=== PATIENT | female | born 1985 | race Caucasian/White ===

== ENCOUNTER 2017-04-12 10:14 | Emergency (ER) | payer OTHER ==
[2017-04-12] MEDS ORDERED: HYDROmorphone 2 MG/ML 1 ML SYRINGE IM STA (10:49)
--- NOTE | 2017-04-12 11:30 | ED ---
General Adult HPI - General Chief complaint: Back Pain/Injury Stated complaint: Back Pain Time Seen by Provider: 04/12/17 10:33 Source: patient, EMS, RN notes reviewed, old records reviewed Mode of arrival: EMS - History of Present Illness Initial comments: This is a 32-year-old female the ER for evaluation of back pain. Patient has history of chronic back pain with no formal imaging. Patient is currently about 14 weeks . The pain has been increasing throughout her . Patient takes no medication at home for pain. The pain is becoming the point where it is debilitating. Patient is scheduled to see orthopedics as an outpatient basis. Patient's pain is shooting down her right leg to the point where situated in the morning she has difficulty with ambulation secondary to pain shooting down her leg. No trauma. No loss of bowel or bladder - Related Data Home Medications Medication Instructions Recorded Confirmed Acetaminophen Tab [Tylenol Tab] 1,000 mg PO Q6HR PRN 04/12/17 04/12/17 Calcium Carbonate [Tums] 500 mg PO Q4H PRN 04/12/17 04/12/17 Ibuprofen [Motrin] 200 - 400 mg PO Q6HR PRN 04/12/17 04/12/17 Zmi-Vfvq-Ssyln Acid 1 cap PO HS 04/12/17 04/12/17 [-U Capsule (formulary)] Rivaroxaban [Xarelto] 20 mg PO HS 04/12/17 04/12/17 Allergies Allergy/AdvReac Type Severity Reaction Status Date / Time amoxicillin trihydrate Allergy Nausea & Verified 04/12/17 10:34 [From Augmentin] Vomiting cephalexin monohydrate Allergy Nausea & Verified 04/12/17 10:34 [From Keflex] Vomiting codeine Allergy Rash/Hives Verified 04/12/17 10:34 morphine Allergy Rash/Hives Verified 04/12/17 10:34 potassium clavulanate Allergy Nausea & Verified 04/12/17 10:34 [From Augmentin] Vomiting tramadol HCl [From Ultram] AdvReac Vomiting Verified 04/12/17 10:34 occuflux Allergy Swelling Uncoded 12/13/15 14:16 Review of Systems ROS Statement: Those systems with pertinent positive or pertinent negative responses have been documented in the HPI. ROS Other: All systems not noted in ROS Statement are negative. 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 ; DVT in right thigh 09/2014: MTHFR clotting disorder 10/2014; Antiphospholipid clotting disorder 10/2014 History of Any Multi-Drug Resistant Organisms: MRSA Date of last positivie culture/infection: 2009 MDRO Source:: Polynoidal cyst Past Surgical History: Adenoidectomy, Back Surgery, Cholecystectomy, Tonsillectomy Additional Past Surgical History / Comment(s): pylonidial cyst 2002, 2 d&c related to miscarriges Past Anesthesia/Blood Transfusion Reactions: No Reported Reaction Past Psychological History: Anxiety, Depression Smoking Status: Former smoker Past Alcohol Use History: None Reported Past Drug Use History: None Reported - Past Family History Mother Family Medical History: AFIB, Musculoskeletal Disorder Additional Family Medical History / Comment(s): cardiomyopathy, muscular dystrophy Father Family Medical History: Hyperlipidemia, Hypertension, Myocardial Infarction ([place]) Brother(s) Family Medical History: Musculoskeletal Disorder Additional Family Medical History / Comment(s): at 17 from muscular dystrophy General Exam General appearance: alert, in no apparent distress Head exam: Present: atraumatic, normocephalic, normal inspection Eye exam: Present: normal appearance, PERRL, EOMI. Absent: scleral icterus, conjunctival injection, periorbital swelling ENT exam: Present: normal exam, mucous membranes moist Neck exam: Present: normal inspection. Absent: tenderness, meningismus, lymphadenopathy Respiratory exam: Present: normal lung sounds bilaterally. Absent: respiratory distress, wheezes, rales, rhonchi, stridor Cardiovascular Exam: Present: regular rate, normal rhythm, normal heart sounds. Absent: systolic murmur, diastolic murmur, rubs, gallop, clicks GI/Abdominal exam: Present: soft, normal bowel sounds. Absent: distended, tenderness, guarding, rebound, rigid Extremities exam: Present: normal inspection, full ROM, normal capillary refill. Absent: tenderness, pedal edema, joint swelling, calf tenderness Back exam: Present: normal inspection Neurological exam: Present: alert, oriented X3, CN II-XII intact Psychiatric exam: Present: normal affect, normal mood Skin exam: Present: warm, dry, intact, normal color. Absent: rash Course Vital Signs 04/12/17 04/12/17 10:16 12:42 Temperature 98.2 F 97.0 F L Pulse Rate 83 78 Respiratory 20 18 Rate Blood Pressure 134/80 124/87 O2 Sat by Pulse 95 99 Oximetry - Reevaluation(s) Reevaluation #1: An attempt to get MRI back, there is contraindication here for , patient will need to see both neurology, orthopedics spinal Reevaluation #2: Discussed patient with patient risks and benefits of pain modification at this time. Told her that we have acute strictly against skilled nursing medication but to encourage Tylenol, will treat with some pain control Troost for ambulation Patient has adequate pain control Medical Decision Making - Medical Decision Making 32 [id number] acute on chronic back pain, sciatic pain. Positive . Patient will continue to follow up in conjunction with OB in orthopedics for evaluation and treatment of her issues Disposition Clinical Impression: Sciatica, Mechanical back pain Disposition: HOME SELF-CARE Condition: Good Instructions: Acute Low Back Pain (ED), Chronic Back Pain (ED) Referrals: Jennifer Gonzáles DO [Doctor of Osteopathic Medicine] - 1-2 days
[2017-04-12 12:45] VITALS: BP 124/87; PULSE 78; RESP 18; TEMP 97
== END 2017-04-12 12:44 | disposition home or self-care (01) ==
LOC: EC 10:14
DX: O99.89 Other specified diseases and conditions complicating pregnancy, childbirth and the puerperium (principal); M54.31 Sciatica, right side; Z3A.14 14 weeks gestation of pregnancy; Z86.718 Personal history of other venous thrombosis and embolism; Z86.14 Personal history of Methicillin resistant Staphylococcus aureus infection; Z79.01 Long term (current) use of anticoagulants; Z88.0 Allergy status to penicillin; Z88.1 Allergy status to other antibiotic agents; Z88.5 Allergy status to narcotic agent; Z88.6 Allergy status to analgesic agent
CPT/HCPCS: 99284; 96372; J1170

== ENCOUNTER → 2017-05-06 | Outpatient (CLI) | payer OTHER ==
--- NOTE | 2017-05-06 18:36 | US ---
EXAMINATION TYPE: US venous doppler duplex LE DATE OF EXAM: 05/06/2017 6:24 PM COMPARISON: NONE CLINICAL HISTORY: Z86.718Hx DVT, D68.51, D68.312. History of DVT right leg, patient currently on bloo d thinner, patient is 5 months SIDE PERFORMED: bilateral TECHNIQUE: The lower extremity deep venous system is examined utilizing real time linear array sonog mary with graded compression, doppler sonography and color-flow sonography. VESSELS IMAGED: External Iliac Vein (EIV) Common Femoral Vein Deep Femoral Vein Greater Saphenous Vein * Femoral Vein Popliteal Vein Small Saphenous Vein * Proximal Calf Veins (* superficial vessels) Right Leg: +Positive for DVT right EIV extending into popliteal vein, thready flow with incomplete c ompression Left Leg: No evidence for DVT IMPRESSION: No evidence of deep venous thrombosis in the left leg. There is evidence of acute deep venous thrombosis in the right leg involving the external iliac femor al and popliteal vein.
== END | disposition home or self-care (01) ==
LOC: RADUSWWP 17:49
PROVIDERS: ATTEND Obstetrics & Gynecology
DX: I82.421 Acute embolism and thrombosis of right iliac vein (principal); I82.431 Acute embolism and thrombosis of right popliteal vein; D68.51 Activated protein C resistance
CPT/HCPCS: 93970

== ENCOUNTER 2017-05-10 10:49 | Inpatient (IN) | payer OTHER ==
--- NOTE | 2017-05-10 11:20 | ED ---
General Adult HPI - General Chief complaint: Extremity Problem,Nontraumatic Stated complaint: right leg DVT-sent by DR Braahona Seen by Provider: 05/10/17 10:55 Source: patient, RN notes reviewed, old records reviewed Mode of arrival: wheelchair Limitations: no limitations - History of Present Illness Initial comments: This is a 32-year-old female who presents emergency Department with a past medical history significant for DVTs. Patient is on Xarelto. Patient is also 19 weeks . Patient had a recent ultrasound just as a precaution and it showed that showed acute DVT in the right leg. Patient denies any new pain or swelling or redness in her leg though she does state that there is some tingling in her leg more recently over the last 2 weeks. Patient states when she is up and walking around she is a little bit short of breath but she believes that to be because of her . Patient states when she is resting she has not noticed any shortness of breath. Patient denies any recent fever chills or cough - Related Data Home Medications Medication Instructions Recorded Confirmed Acetaminophen Tab [Tylenol Tab] 500 mg PO Q6HR PRN 04/12/17 05/10/17 Voj-Stto-Tllmv Acid 1 cap PO DAILY@1700 04/12/17 05/10/17 [-U Capsule (formulary)] Rivaroxaban [Xarelto] 20 mg PO DAILY@1700 04/12/17 05/10/17 Aspirin EC [Ecotrin Low Dose] 81 mg PO DAILY@1700 05/10/17 05/10/17 diphenhydrAMINE [Benadryl] 25 mg PO HS PRN 05/10/17 05/10/17 Allergies Allergy/AdvReac Type Severity Reaction Status Date / Time amoxicillin trihydrate Allergy Nausea & Verified 05/10/17 11:18 [From Augmentin] Vomiting cephalexin monohydrate Allergy Nausea & Verified 05/10/17 11:18 [From Keflex] Vomiting codeine Allergy Rash/Hives Verified 05/10/17 11:18 morphine Allergy Rash/Hives Verified 05/10/17 11:18 potassium clavulanate Allergy Nausea & Verified 05/10/17 11:18 [From Augmentin] Vomiting tramadol HCl [From Ultram] AdvReac Vomiting Verified 05/10/17 11:18 occuflux Allergy Swelling Uncoded 05/10/17 10:57 Review of Systems ROS Statement: Those systems with pertinent positive or pertinent negative responses have been documented in the HPI. ROS Other: All systems not noted in ROS Statement are negative. 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 ; DVT in right thigh 09/2014: MTHFR clotting disorder 10/2014; Antiphospholipid clotting disorder 10/2014 History of Any Multi-Drug Resistant Organisms: MRSA Date of last positivie culture/infection: 2009 MDRO Source:: Polynoidal cyst Past Surgical History: Adenoidectomy, Back Surgery, Cholecystectomy, Tonsillectomy Additional Past Surgical History / Comment(s): pylonidial cyst 2002, 2 d&c related to miscarriges Past Anesthesia/Blood Transfusion Reactions: No Reported Reaction Past Psychological History: Anxiety, Depression Smoking Status: Former smoker Past Alcohol Use History: None Reported Past Drug Use History: None Reported - Past Family History Mother Family Medical History: AFIB, Musculoskeletal Disorder Additional Family Medical History / Comment(s): cardiomyopathy, muscular dystrophy Father Family Medical History: Hyperlipidemia, Hypertension, Myocardial Infarction ([place]) Brother(s) Family Medical History: Musculoskeletal Disorder Additional Family Medical History / Comment(s): at 17 from muscular dystrophy General Exam - General Exam Comments Initial Comments: GENERAL: Patient is well-developed and well-nourished. Patient is nontoxic and well- hydrated and is in no acute distress. ENT: Neck is soft and supple. No significant lymphadenopathy is noted. Oropharynx is clear. Moist mucous membranes. Neck has full range of motion without eliciting any pain. EYES: The sclera were anicteric and conjunctiva were pink and moist. Extraocular movements were intact and pupils were equal round and reactive to light. Eyelids were unremarkable. PULMONARY: Unlabored respirations. Good breath sounds bilaterally. No audible rales rhonchi or wheezing was noted. CARDIOVASCULAR: Patient is mildly tachycardic at 110 beats a minute ABDOMEN: Soft and nontender with normal bowel sounds. No palpable organomegaly was noted. There is no palpable pulsatile mass. SKIN: Skin is clear with no lesions or rashes and otherwise unremarkable. NEUROLOGIC: Patient is alert and oriented x3. Cranial nerves II through XII are grossly intact. Motor and sensory are also intact. Normal speech, volume and content. Symmetrical smile. MUSCULOSKELETAL: Normal extremities with adequate strength and full range of motion. No lower extremity swelling or edema. No calf tenderness. LYMPHATICS: No significant lymphadenopathy is noted PSYCHIATRIC: Normal psychiatric evaluation. Normal interpersonal interactions appears functionally intact in deals appropriately with others. No signs of depression. No signs of anxiety. Limitations: no limitations Course Vital Signs 05/10/17 10:54 Temperature 97.5 F L Pulse Rate 108 H Respiratory 20 Rate Blood Pressure 137/85 O2 Sat by Pulse 99 Oximetry Medical Decision Making - Medical Decision Making I spoke with Dr. sariah Bhat wants patient started on IV heparin. Dr. Bhat stated he had the patient on high-dose subcu heparin because the patient would not take Lovenox because she didn't want to pay the co-pay. She supposed to follow-up with Dr. Lehman for her PT and PTT but the patient has missed 2 or 3 appointments for that follow-up. Patient's EKG shows a sinus tachycardia at 105 bpm [place] interval 230 QRS is 86 QT interval 336 QTC is 444. I spoke with Dr. Namrata Ott he agreed to admit the patient. Disposition Clinical Impression: Acute DVT (deep venous thrombosis) Disposition: ADMITTED IP TO THIS HOSP Referrals: Artie Brooks MD [Primary Care Provider] - 1-2 days Time of Disposition: 12:20
[2017-05-10] MEDS ORDERED: HEPARIN SODIUM,PORCINE/D5W PMX 25,000 UNIT in DEXTROSE/WATER 1 500ML.BAG IV SCH (11:40)
[2017-05-10] MEDS ORDERED: HEPARIN SODIUM,PORCINE 10,000 UNIT/ML 1 ML VIAL IV ONE (11:40)
[2017-05-10] MEDS ORDERED: HEPARIN SODIUM,PORCINE 5,000 UNIT/ML 1 ML VIAL IV ONE (12:15)
[2017-05-10] MEDS ORDERED: SODIUM CHLORIDE 0.9% 1,000 ML IV ONE (12:20)
[2017-05-10 12:35] LABS: WBC 11.7 k/uL (3.8-10.6); WBC (Perox) 11.65
[2017-05-10 12:36] LABS: CH 31.1; CHCM 34.9; HCT 40.2 % (34.0-46.0); MCH 31.1 pg (25.0-35.0); MCHC 34.8 g/dL (31.0-37.0); MCV 89.4 fL (80.0-100.0); RBC 4.49 m/uL (3.80-5.40)
[2017-05-10 12:37] LABS: Basophils % (A) 0 %; Eosinophils % (A) 1 %; HDW 2.89; Luc % (Auto) 4; Lymphocytes # (A) 2.2 k/uL (1.0-4.8); Lymphocytes % (A) 19 %; Mean Platelet Volume 7.6; Monocytes % (A) 8 %; Neutrophils # (A) 7.9 k/uL (1.3-7.7); Neutrophils % (A) 67 %; RDW 13.9 % (11.5-15.5)
[2017-05-10 12:38] LABS: Eosinophils # (A) 0.1 k/uL (0-0.7); Luc # (Auto) 0.48
[2017-05-10 12:42] LABS: ALT 19 U/L (9-52); AST 18 U/L (14-36); Alkaline Phosphatase 74 U/L (38-126); Anion Gap 10 mmol/L; Blood Urea Nitrogen 9 mg/dL (7-17); Calcium 9.2 mg/dL (8.4-10.2); Carbon Dioxide 19 mmol/L (22-30); Chloride 106 mmol/L (98-107); Glucose 86 mg/dL (74-99); Non-African American GFR(MDRD) >60 (>60 ml/min/1.73 sqM); Potassium 4.2 mmol/L (3.5-5.1); Sodium 135 mmol/L (137-145); Total Bilirubin 0.5 mg/dL (0.2-1.3); Total Protein 6.6 g/dL (6.3-8.2)
[2017-05-10 12:50] LABS: INR 0.9 (<1.2); Partial Thromboplastin Time 22.9 sec (22.0-30.0); Prothrombin Time 9.7 sec (9.0-12.0)
[2017-05-10] MEDS ORDERED: ONDANSETRON 4 MG/2 ML VIAL IVP PRN (15:49)
[2017-05-10] MEDS ORDERED: CALCIUM CARBONATE 500 MG CHEWABLE PO PRN (15:49)
[2017-05-10] MEDS: HEPARIN SODIUM,PORCINE/D5W PMX 25,000 UNIT in DEXTROSE/WATER 1 500ML.BAG IV ONE (16:12)
--- NOTE | 2017-05-10 17:06 | P.HPIM ---
History of Present Illness H&P Date: 05/10/17 Chief Complaint: leg pain Patient is a 32-year-old female with a history of multiple miscarriages, lower extremity DVT in 2015 on the right, Crohn's disease, factor V Leiden, NT HFR, and antiphospholipid syndrome who presented to the hospital at the direction of Dr. Bhat. She had an outpatient ultrasound done which showed progression of her right lower extremity DVT. In the emergency department she was placed on IV heparin drip. Dr. Bhat was contacted. Patient states that she has been having some right lower extremity pain for the last 1 month which has been getting better. She had attributed this to her herniated disc in her back. She has also been having right lower extremity numbness. She has had increasing shortness of breath. She thought this was worse on exertion but also notes that it has been at rest and she has been extending her neck and her throat to try to breathe better. She had a persistent headache for 5 days last week that was not helped with ice packs, rest or Tylenol. It resolved spontaneously. She denies any chest pain. She states that last week she did have palpitations and elevated heart rate. She is currently 19 weeks . She's been seeing maternal- medicine secondary to 9 prior miscarriages. [facility] is the physicains who initially wanted the ultrasound. She has also struggling with heartburn. Review of Systems General: no fever/chills, no rigors, + weight gain, no change in appetite Eyes: No double vision, no unusual blurry vision, no loss of vision ENT: No rhinorrhea, congestion, no trush Cardiovascular: No chest pain, no palpitations, no syncope, no edema, No paroxysmal nocturnal dyspnea, No dizziness Pulmonary: No shortness of breath, no wheezing, no cough, hemoptysis Abdominal: No abdominal pain, no constipation, no diarrhea, no vomiting, no nausea, no distention Genitourinary: No dysuria, no urinary frequency, no hematuria, no unusual discharge/odor Neuro: + Right lower extremity decreased touch, no unusual paresis/paralysis, no headache Dermatologic: No unusual rashes, no unusual lesions, no unusual changes in nails Endocrinology: No intolerance to heat/cold, no excessive thirst,] no unusual fatigue Hematologic: No unusual bruising or bleeding, no unusual cervical lymphadenopathy Psychiatric: No changes in mood or behaviors, no changes in sleep pattern Musculoskeletal: + Right lower extremity pain, + back pain Past Medical History Past Medical History: Asthma, Blood Disorder, Deep Vein Thrombosis (DVT), GERD/ Reflux, Pneumonia Additional Past Medical History / Comment(s): pt is lt side dominant.chronic back pain pylonidial cyst; occasional irregular heart beat(pac's) related to stress; 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 9 miscarriages History of Any Multi-Drug Resistant Organisms: MRSA Date of last positivie culture/infection: 2009 MDRO Source:: Polynoidal cyst Past Surgical History: Adenoidectomy, Back Surgery, Cholecystectomy, Tonsillectomy Additional Past Surgical History / Comment(s): pylonidial cyst 2002, 2 d&c related to miscarriges Past Anesthesia/Blood Transfusion Reactions: No Reported Reaction Smoking Status: Former smoker - Past Family History Mother Family Medical History: AFIB, Congestive Heart Failure (CHF), Musculoskeletal Disorder Additional Family Medical History / Comment(s): cardiomyopathy, muscular dystrophy Father Family Medical History: Hyperlipidemia, Hypertension, Myocardial Infarction ([place]) Brother(s) Family Medical History: Musculoskeletal Disorder Additional Family Medical History / Comment(s): at 17 from muscular dystrophy Medications and Allergies Home Medications Medication Instructions Recorded Confirmed Type Acetaminophen Tab [Tylenol Tab] 500 mg PO Q6HR PRN 04/12/17 05/10/17 History Gfi-Qngd-Rabcw Acid 1 cap PO DAILY@169904/12/17 05/10/17 History [-U Capsule (formulary)] Rivaroxaban [Xarelto] 20 mg PO DAILY@169904/12/17 05/10/17 History Aspirin EC [Ecotrin Low Dose] 81 mg PO DAILY@169905/10/17 05/10/17 History diphenhydrAMINE [Benadryl] 25 mg PO HS PRN 05/10/17 05/10/17 History Allergies Allergy/AdvReac Type Severity Reaction Status Date / Time amoxicillin trihydrate Allergy Nausea & Verified 05/10/17 11:18 [From Augmentin] Vomiting cephalexin monohydrate Allergy Nausea & Verified 05/10/17 11:18 [From Keflex] Vomiting codeine Allergy Rash/Hives Verified 05/10/17 11:18 morphine Allergy Rash/Hives Verified 05/10/17 11:18 potassium clavulanate Allergy Nausea & Verified 05/10/17 11:18 [From Augmentin] Vomiting tramadol HCl [From Ultram] AdvReac Vomiting Verified 05/10/17 11:18 occuflux Allergy Swelling Uncoded 05/10/17 10:57 Physical Exam Osteopathic Statement: *. No significant issues noted on an osteopathic structural exam other than those noted in the History and Physical/Consult. Vitals: Vital Signs Temp Pulse Resp BP Pulse Ox 05/10/17 10:54 97.5 F L 108 H 20 137/85 99 Intake and Output 05/10/17 05/10/17 05/10/17 06:59 14:59 22:59 Other: Weight 115.666 kg Patient Weight 05/11/17 06:59 Weight 115.666 kg General: non toxic, no distress, appears at stated age, obese Derm: no rashes, no lesions, no ulcers, no unusual ecchymoses Head: atraumatic, normocephalic, symmetric Eyes: EOMI, no lid lag, anicteric sclera, pupils equal round reactive to light ENT: no post nasal drip, no thrush , nearest patent, no pharyngeal erythema Neck: No thyromegaly, no cervical lymphadenopathy, trachea midline, supple Mouth: no lip lesion, mucus membranes moist Cardiovascular: S1S2 reg, no murmur, positive posterior tibial pulse bilateral, no edema , no JVD, no clubbing, no cyanosis, capillary refill less than 2 seconds Lungs: CTA bilateral, no rhonchi, no rales , no accessory muscle use Abdominal: soft, nontender to palpation, no guarding, no appreciable organomegaly, normal bowel sounds Ext: no gross muscle atrophy, muscle strength 5 out of 5 in all 4 extremities grossly, no contractures, Neuro: CN II-XI grossly intact, decreased sensation right lower extremity, light touch intact all other extremity, finger to nose within normal limits, Psych: Alert, oriented, appropriate affect Results CBC & Chem 7: 05/10/17 11:36 05/10/17 11:36 Labs: Abnormal Lab Results - Last 24 Hours (Table) 05/10/17 05/10/17 Range/Units 11:36 11:36 WBC 11.7 H (3.8-10.6) k/uL Neutrophils # 7.9 H (1.3-7.7) k/uL Sodium 135 L (137-145) mmol/L Carbon Dioxide 19 L (22-30) mmol/L Albumin 3.3 L (3.5-5.0) g/dL Venous US: report reviewed Thrombosis Risk Factor Assmnt - DVT/VTE Prophylaxis DVT/VTE Prophylaxis: Pharmacologic Prophylaxis ordered Assessment and Plan Plan: #Right lower extremity proximal DVT -Some concern for coexisting pulmonary embolism with increasing shortness of breath. However with known acute DVT further diagnostics such as a VQ scan or CTA chest are not indicated unless desired by hematology as the patient will require treatment and in my opinion the risks may outweigh benefit secondary to her viable intrauterine , but I defer definitive decision regarding the need for this testing to heme/onc. -History of factor V Leiden, MTHFR, and antiphospholipid antibody syndrome -Heparin drip, await hematology recommendations -Failed Xarelto therapy # 19 weeks -Continue vitamin -We'll treat pain and nausea with Tylenol and Zofran -Await OB recommendation #GERD -Pepcid once daily -Tums as needed #Herniated disc with resultant neuropathy -We'll follow with Dr. Gonzáles on Tuesday Chronic: Obesity, Crohn's disease, anxiety, asthma Patient has elected to the Dr. Franco as an outpatient and will be followed by Dr. Lopez starting tomorrow. Surrogate decision-maker: CODE STATUS: Full DVT prophylaxis: On full dose anticoagulation Discussed with: Patient, nursing, family Anticipated discharge: Undetermined Anticipated discharge place: home A total of 45 minutes was spent on the care of this complex patient more than 50 % of the time was spent in counseling and care coordination.
[2017-05-11] MEDS: HEPARIN SODIUM,PORCINE/D5W PMX 25,000 UNIT in DEXTROSE/WATER 1 500ML.BAG IV ONE (00:14)
[2017-05-11] MEDS: HEPARIN SODIUM,PORCINE/D5W PMX 25,000 UNIT in DEXTROSE/WATER 1 500ML.BAG IV SCH ×3 (00:15→23:58)
[2017-05-11] MEDS: ACETAMINOPHEN TAB 500 MG TAB PO PRN ×3 (01:11→21:23)
[2017-05-11 07:28] LABS: CH 31.6; CHCM 35.1; HCT 38.3 % (34.0-46.0); MCH 30.7 pg (25.0-35.0); MCHC 33.8 g/dL (31.0-37.0); MCV 90.8 fL (80.0-100.0); Mean Platelet Volume 8.4; RBC 4.22 m/uL (3.80-5.40); RDW 14.9 % (11.5-15.5); WBC 9.9 k/uL (3.8-10.6)
[2017-05-11 08:10] LABS: ALT 21 U/L (9-52); AST 20 U/L (14-36); Alkaline Phosphatase 70 U/L (38-126); Anion Gap 10 mmol/L; Blood Urea Nitrogen 8 mg/dL (7-17); Calcium 8.9 mg/dL (8.4-10.2); Carbon Dioxide 22 mmol/L (22-30); Chloride 103 mmol/L (98-107); Glucose 91 mg/dL (74-99); Non-African American GFR(MDRD) >60 (>60 ml/min/1.73 sqM); Sodium 135 mmol/L (137-145); Total Bilirubin 0.5 mg/dL (0.2-1.3); Total Protein 6.5 g/dL (6.3-8.2)
[2017-05-11] MEDS ORDERED: HEPARIN SODIUM,PORCINE 5,000 UNIT/ML 1 ML VIAL IV PRN (08:10)
[2017-05-11] MEDS ORDERED: HEPARIN SODIUM,PORCINE 10,000 UNIT/ML 1 ML VIAL IV PRN (08:11)
[2017-05-11] MEDS: FAMOTIDINE 20 MG TAB PO SCH (08:48)
--- NOTE | 2017-05-11 08:56 | P.OBCN ---
History of Present Illness Consult date: 05/11/17 Reason for consult: early problem (Acute DVT in ) History of present illness: The patient is a 32-year-old multipara is woman who is approximately 19 weeks of gestation by good dating parameters. She carries a long-standing history of known factor V Leiden with a history of acute deep venous thrombosis for which she has been on Xarelto prior to and this has been continued during as the patient cannot afford to use Lovenox and has not yet been changed to unfractionated heparin. She has been seen by maternal medicine at [facility] for the entirety of the . Her is also been complicated by severe sciatic pain for which she has been seen by Dr. Gonzáles with orthopedic associates. As a course of routine testing requested by [facility], the patient underwent screening bilateral venous Doppler and was found to have a an acute DVT in 1 of the iliac veins. This was noted 3 days prior to admission and not reported by radiology to any of the involved physicians. This was found when the report crossed my desk on the morning of admission. She has been co-managed by Dr. Bhat for her ongoing hematologic concerns and known factor V Leiden mutation. She immediately sent her to the emergency room where after she was admitted to the hospital. She was initially having some shortness of breath and tachycardia but it is unclear whether it was related to anxiety or whether she may have had symptoms of a pulmonary embolism. CAT scan was not done secondary to ongoing . She does feel significantly better this morning and is without complaints. She does not feel activity or movement yet. heart tones had been Doppler that are stable and there is no ongoing concerns aside from the acute DVT. Obstetrical and gynecologic history: Unremarkable as regards this admission though the patient has had multiple miscarriages in the past. She is being co- managed at this time with maternal medicine at [facility]. Review of Systems Review of systems is confined to history of present illness. 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 9 miscarriages History of Any Multi-Drug Resistant Organisms: MRSA Year Discovered:: 2009 MDRO Source:: Polynoidal cyst Past Surgical History: Adenoidectomy, Back Surgery, Cholecystectomy, Tonsillectomy Additional Past Surgical History / Comment(s): pylonidial cyst 2002, 2 d&c related to miscarriges Past Anesthesia/Blood Transfusion Reactions: No Reported Reaction Smoking Status: Former smoker - Past Family History Mother Family Medical History: AFIB, Congestive Heart Failure (CHF), Musculoskeletal Disorder Additional Family Medical History / Comment(s): cardiomyopathy, muscular dystrophy Father Family Medical History: Hyperlipidemia, Hypertension, Myocardial Infarction ([place]) Brother(s) Family Medical History: Musculoskeletal Disorder Additional Family Medical History / Comment(s): at 17 from muscular dystrophy Medications and Allergies Home Medications Medication Instructions Recorded Confirmed Type Acetaminophen Tab [Tylenol Tab] 500 mg PO Q6HR PRN 04/12/17 05/10/17 History Oul-Ltqn-Oorlu Acid 1 cap PO DAILY@169904/12/17 05/10/17 History [-U Capsule (formulary)] Rivaroxaban [Xarelto] 20 mg PO DAILY@0 04/12/17 05/10/17 History Aspirin EC [Ecotrin Low Dose] 81 mg PO DAILY@0 05/10/17 05/10/17 History diphenhydrAMINE [Benadryl] 25 mg PO HS PRN 05/10/17 05/10/17 History Allergies Allergy/AdvReac Type Severity Reaction Status Date / Time amoxicillin trihydrate Allergy Nausea & Verified 05/10/17 11:18 [From Augmentin] Vomiting cephalexin monohydrate Allergy Nausea & Verified 05/10/17 11:18 [From Keflex] Vomiting codeine Allergy Rash/Hives Verified 05/10/17 11:18 morphine Allergy Rash/Hives Verified 05/10/17 11:18 potassium clavulanate Allergy Nausea & Verified 05/10/17 11:18 [From Augmentin] Vomiting tramadol HCl [From Ultram] AdvReac Vomiting Verified 05/10/17 11:18 occuflux Allergy Swelling Uncoded 05/10/17 10:57 Exam - Vital Signs Vital signs: Vital Signs Temp Pulse Pulse Resp BP BP Pulse Ox 05/11/17 04:00 96 18 05/11/17 00:00 96 18 05/10/17 20:00 97.4 F L 96 18 119/74 98 05/10/17 16:00 98.1 F 102 H 16 137/74 97 05/10/17 10:54 97.5 F L 108 H 20 137/85 99 Intake and Output 05/10/17 05/11/17 05/11/17 22:59 06:59 14:59 Intake Total 63.25 507.909 Balance 63.25 507.909 Intake: Intake, IV Titration 63.25 407.909 Amount Heparin Sodium,Porcine/ 63.25 407.909 D5w Pmx 25,000 unit In Dextrose/Water 1 500ml. bag @ 18 UNITS/KG/HR 41. 63 mls/hr IV .Q12H1M [facility] Rx#:[id number] Oral 100 Other: Voiding Method Toilet Toilet # Voids 1 1 Weight 114.7 kg In general, this is a well-developed, mild to moderately obese white female in no acute distress. Her heart has a regular rhythm and rate without murmur at this time. Her lungs are clear to auscultation bilaterally in all strong. Her abdomen is nondistended, has normal active bowel sounds, soft, nontender, and without any palpable masses aside from uterine fundus around the umbilicus. Her extremities are without any cyanosis, clubbing, or edema and are nontender to palpation bilaterally. Pelvic examination is deferred. Results Result Diagrams: 05/11/17 07:13 05/11/17 07:13 Abnormal Lab Results - Last 24 Hours (Table) 05/10/17 05/10/17 05/10/17 Range/Units 11:36 11:36 17:40 WBC 11.7 H (3.8-10.6) k/uL Neutrophils # 7.9 H (1.3-7.7) k/uL APTT 31.3 H (22.0-30.0) sec Sodium 135 L (137-145) mmol/L Carbon Dioxide 19 L (22-30) mmol/L Albumin 3.3 L (3.5-5.0) g/dL 05/11/17 05/11/17 05/11/17 Range/Units 01:02 07:13 07:13 WBC (3.8-10.6) k/uL Neutrophils # (1.3-7.7) k/uL APTT 32.6 H 36.7 H (22.0-30.0) sec Sodium 135 L (137-145) mmol/L Carbon Dioxide (22-30) mmol/L Albumin 3.3 L (3.5-5.0) g/dL Assessment and Plan (1) 19 weeks gestation of Status: Acute (2) Acute DVT (deep venous thrombosis) Status: Acute Plan: From an obstetrical standpoint, there is very little to do at this time. I have asked the nurses from labor and delivery to adopt the heart tones once daily. I will leave the remainder of her management for anticoagulation in the hands of the hematology team. There is some consideration for choosing a different low molecular weight heparin product then Lovenox versus using unfractionated heparin. I will plan to contact maternal medicine at [facility] and likely arrange for transfer as the primary service manager of her care to them as her level of complication is greater than that of a routine talent scout. There may be a consideration for transfer of the patient from this hospital to their hospital for further management of her anticoagulation if they wish it. I will continue to follow at a distance. If any further obstetrical concerns become apparent, please feel free to contact me at her leisure.
--- NOTE | 2017-05-11 12:10 | US ---
EXAMINATION TYPE: US venous doppler duplex LE RT DATE OF EXAM: 05/11/2017 11:22 AM COMPARISON: Previous from 05-06-17 CLINICAL HISTORY: DVT. SIDE PERFORMED: RIGHT TECHNIQUE: The lower extremity deep venous system is examined utilizing real time linear array sonog mary with graded compression, doppler sonography and color-flow sonography. VESSELS IMAGED: External Iliac Vein (EIV) Common Femoral Vein Deep Femoral Vein Greater Saphenous Vein * Femoral Vein Popliteal Vein Small Saphenous Vein * Proximal Calf Veins (* superficial vessels) Right Leg: Some low-level internal echoes are present peripherally at the common femoral vein which is not entirely compressible similar to prior exam, minimal wall thickening is present which may be r esidual from old deep venous thrombosis. Grayscale, color doppler, spectral doppler imaging performed of the deep veins of the lower extremiti es. IMPRESSION: Similar findings to prior exam. Findings may represent residuum from previous deep venous thrombosis. Only minimal wall thickening present at the level of the common femoral vein.
--- NOTE | 2017-05-11 13:53 | ECHOF ---
Referral Reason:Pulmonary Pressure MEASUREMENTS -------- HEIGHT: 175.3 cm WEIGHT: 114.3 kg BP: 117/75 RVIDd: 3.5 cm (< 3.3) IVSd: 1.4 cm (0.6 - 1.1) LVIDd: 4.3 cm (3.9 - 5.3) LVPWd: 1.2 cm (0.6 - 1.1) IVSs: 1.6 cm LVIDs: 3.5 cm LVPWs: 1.6 cm LA Diam: 3.7 cm (2.7 - 3.8) LAESV Index (A-L): 18.12 ml/m Ao Diam: 3.6 cm (2.0 - 3.7) AV Cusp: 2.7 cm (1.5 - 2.6) LA Diam: 3.8 cm (2.7 - 3.8) MV EXCURSION: 18.438 mm (> 18.000) MV EF SLOPE: 103 mm/s (70 - 150) EPSS: 0.3 cm MV E Mike: 0.50 m/s MV DecT: 221 ms MV A Mike: 0.65 m/s MV E/A Ratio: 0.76 RAP: 5.00 mmHg RVSP: 18.48 mmHg FINDINGS -------- Sinus rhythm. This was a technically adequate study. The left ventricular size is normal. Left ventricular wall thickness is normal. Overall left ventricular systolic function is low-normal with, an EF between 50 - 55 %. The right ventricle is moderately enlarged. The left atrial size is normal. Normal LA size by volume 22+/-6 ml/m2. The right atrial size is normal. The aortic valve is trileaflet, and appears structurally normal. No aortic stenosis or regurgitation. Mild mitral regurgitation is present. Mild tricuspid regurgitation present. There is no evidence of pulmonary hypertension. The right ventricular systolic pressure, as measured by Doppler, is 18.48mmHg. There is no pulmonic regurgitation present. The aortic root size is normal. There is no pericardial effusion. CONCLUSIONS -------- 1. The left ventricular size is normal. 2. The right ventricular systolic pressure, as measured by Doppler, is 18.48mmHg. 3. Left ventricular wall thickness is normal. 4. Overall left ventricular systolic function is low-normal with, an EF between 50 - 55 %. 5. The right ventricle is moderately enlarged. 6. Normal LA size by volume 22+/-6 ml/m2. 7. The aortic valve is trileaflet, and appears structurally normal. No aortic stenosis or regurgitation. 8. Mild mitral regurgitation is present. 9. Mild tricuspid regurgitation present. 10. There is no evidence of pulmonary hypertension. ADMISSIONS SPECIALIST: Tiffanie Hilton RDCS
--- NOTE | 2017-05-11 15:25 | P.HPIM ---
History of Present Illness H&P Date: 05/11/17 Chief Complaint: Right leg DVT, possible pulmonary embolism, coagulopathy, 19 week 52-year-old mildly overweight female [address] Franco[address] patient who apparently had complicated with multiple miscarriages in the past has been seen at [facility]. 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 Result were communicated to Dr. Bhat office who seen patient from hematology [facility] for her long-standing coagulopathy on lifetime management. Patient apparently has been on Xarelto before her and was converted to high- dose heparin subcutaneous and supposed to have PTT testing at Dr. Bhat office on weekly basis which has not done it. Apparently with the new blood clot in the leg patient was called and advised to come to the hospital and been hospitalized for a new DVT require acute treatment. Shortly after arrival to the emergency department and the hospital patient developed to have significant shortness of breath dyspnea and mild hypoxia with her and current condition could not send her for CTA R VQ scan patient was treated with heparin drip after bolus to treated as an acute active pulmonary embolism till final decision is made. I met with the patient for the first time today and talking to her it sounds that patient never started on heparin subcutaneous but she has been taking Xarelto all lung and if this is failure to Xarelto despite being on treatment on regular basis patient might need to be converted to subcutaneous Lovenox or other type of anticoagulation decided by hematology for the rest of her life. Also discussed with the patient and her if this was a new blood clot will repeat another Doppler compare it with the last one done in 2015 and have the radiologist and a vascular review both if this is a new clot further management with more aggressive anticoagulation to be done if no new blood clot.of PE still very low but will do echocardiogram as well if the pulmonary pressure is very normal.if this is pulmonary embolism is very low as well and there is no reason to do any testing since patient is given a be on anticoagulation anyway. Review of Systems Constitutional: Reports fatigue, Reports malaise, Reports weight gain, Denies as per HPI, Denies anorexia, Denies chills, Denies chronic headaches, Denies chronic pain, Denies daytime sleepiness, Denies fever, Denies lethargy, Denies night sweats, Denies poor appetite, Denies sweats, Denies weakness, Denies weight loss Eyes: bilateral as per HPI Ears: bilateral: decreased hearing Ears, nose, mouth and throat: Reports ant. neck pain, Reports nasal congestion, Reports nasal discharge, Reports sinus pain, Reports sinus pressure, Denies as per HPI, Denies bleeding gums, Denies dental pain, Denies dysphagia, Denies epistaxis, Denies headache, Denies hoarseness, Denies mouth pain, Denies neck fullness/pressure, Denies neck lump, Denies nose pain, Denies odynophagia, Denies post-nasal drip, Denies swelling in mouth, Denies swelling in throat, Denies sore throat, Denies vertigo, Denies voice changes Cardiovascular: Reports chest pain, Reports edema, Reports high blood pressure, Reports irregular heart beat, Reports leg edema, Reports orthopnea, Reports palpitations, Reports paroxysmal nocturnal dyspnea, Reports rapid heart beat, Reports shortness of breath, Denies as per HPI, Denies claudication, Denies decreased exercise tolerance, Denies dyspnea on exertion, Denies lightheadedness , Denies phlebitis, Denies syncope Respiratory: Reports congestion, Reports cough, Reports dyspnea, Reports wheezing, Denies as per HPI, Denies cough with sputum, Denies excessive sputum, Denies hemoptysis, Denies home oxygen, Denies pain, Denies pain on inspiration, Denies pleurisy, Denies respiratory infections, Denies sleep apnea, Denies snoring Gastrointestinal: Reports abdominal pain, Reports bloating, Reports constipation , Reports early satiety, Reports indigestion, Reports nausea, Denies as per HPI , Denies belching, Denies BRBPR, Denies change in bowel habits, Denies coffee ground emesis, Denies diarrhea, Denies dyspepsia, Denies excessive gas, Denies heartburn, Denies hematemesis, Denies hematochezia, Denies jaundice, Denies lactose intolerance, Denies loss of appetite, Denies melena, Denies vomiting Genitourinary: Reports urinary frequency, Denies as per HPI, Denies abnormal vaginal bleeding, Denies decreased libido, Denies difficulty conceiving, Denies difficulty voiding, Denies dysmenorrhea, Denies dyspareunia, Denies dysuria, Denies flank pain, Denies genital sores, Denies hematuria, Denies hot flashes, Denies incomplete emptying, Denies kidney stones, Denies menorrhagia, Denies mixed incontinence, Denies nocturia, Denies pelvic pain, Denies post void dribbling, Denies , Denies prolapse symptoms, Denies stress incontinence , Denies urge incontinence, Denies urgency, Denies vaginal discharge, Denies vaginal dryness, Denies vaginal itching, Denies vaginal odor Musculoskeletal: Reports low back pain, Reports neck pain, Reports neck stiffness, Denies as per HPI, Denies arm numbness/tingling, Denies atrophy, Denies fractures, Denies frequent falls, Denies gait dysfunction, Denies hot joints, Denies leg numbness/tingling, Denies limitation of motion, Denies loss of height, Denies morning stiffness, Denies muscle cramps, Denies muscle weakness, Denies myalgias, Denies prior amputations, Denies redness of joints, Denies shooting arm pain, Denies shooting leg pain Integumentary: Denies as per HPI, Denies acne, Denies boils, Denies brittle nails, Denies change in hair/nails, Denies color changes, Denies darkening of skin, Denies depigmentation, Denies dryness, Denies foot/leg ulcers, Denies growths, Denies hirsutism, Denies lesions, Denies onychomycosis, Denies pruritus , Denies rash, Denies sores, Denies striae, Denies unusual bruising, Denies wounds Neurological: Denies as per HPI, Denies aphasia, Denies ataxia, Denies balance difficulties, Denies burning pain, Denies change in mentation, Denies change in smell/taste, Denies change in speech, Denies confusion, Denies convulsions, Denies double vision, Denies gait dysfunction, Denies head injury, Denies headaches, Denies hearing difficulties, Denies lack of coordination, Denies loss of vision, Denies memory loss, Denies migraines, Denies motor disturbance, Denies numbness, Denies paralysis, Denies paresthesias, Denies seizures, Denies sensory deficit, Denies spasticity, Denies syncope, Denies tic, Denies tingling , Denies transient paralysis, Denies tremors, Denies vertigo, Denies weakness, Denies visual changes Psychiatric: Reports anhedonia, Reports anxiety, Denies as per HPI, Denies anxiety attacks, Denies change in appetite, Denies change in libido, Denies change in sleep habits, Denies confusion, Denies depression, Denies difficulty concentrating, Denies disorientation, Denies hallucinations, Denies hopelessness , Denies hypersomnia, Denies insomnia, Denies irritability, Denies memory loss, Denies mood swings, Denies paranoia, Denies sadness/tearfulness, Denies sleep disturbances, Denies suicidal ideation Endocrine: Reports cold intolerance, Reports fatigue, Denies as per HPI, Denies deepening of the voice, Denies excessive sweating, Denies excessive thirst, Denies flushing, Denies heat intolerance, Denies high blood sugars, Denies increase in ring/shoe/hat size, Denies low blood sugars, Denies nocturia, Denies palpitations, Denies polydipsia, Denies polyphagia, Denies polyuria, Denies proptosis, Denies recent glucocorticoid use, Denies thyroid mass, Denies weight change Hematologic/Lymphatic: Denies as per HPI, Denies easy bleeding, Denies easy bruising, Denies lymphadenopathy, Denies lymphedema, Denies thrombophilia Allergic/Immunologic: Denies as per HPI, Denies allergic rhinitis, Denies anaphylaxis, Denies angioedema, Denies gluten intolerance, Denies persistent infections, Denies seasonal allergies, Denies urticaria, Denies wheezing Past Medical History Past Medical History: Asthma, Blood Disorder, Deep Vein Thrombosis (DVT), GERD/ Reflux, Pneumonia Additional Past Medical History / Comment(s): pt is lt side dominant.chronic back pain pylonidial cyst; occasional irregular heart beat(pac's) related to stress; 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 9 miscarriages History of Any Multi-Drug Resistant Organisms: MRSA Date of last positivie culture/infection: 2009 MDRO Source:: Polynoidal cyst Past Surgical History: Adenoidectomy, Back Surgery, Cholecystectomy, Tonsillectomy Additional Past Surgical History / Comment(s): pylonidial cyst 2003, 2 d&c related to miscarriges Past Anesthesia/Blood Transfusion Reactions: No Reported Reaction Smoking Status: Former smoker - Past Family History Mother Family Medical History: AFIB, Congestive Heart Failure (CHF), Musculoskeletal Disorder Additional Family Medical History / Comment(s): cardiomyopathy, muscular dystrophy Father Family Medical History: Hyperlipidemia, Hypertension, Myocardial Infarction (NE) Brother(s) Family Medical History: Musculoskeletal Disorder Additional Family Medical History / Comment(s): at 17 from muscular dystrophy Medications and Allergies Home Medications Medication Instructions Recorded Confirmed Type Acetaminophen Tab [Tylenol Tab] 500 mg PO Q6HR PRN 04/12/17 05/10/17 History Get-Fsdl-Bsjhk Acid 1 cap PO DAILY@169904/12/17 05/10/17 History [-U Capsule (formulary)] Rivaroxaban [Xarelto] 20 mg PO DAILY@169904/12/17 05/10/17 History Aspirin EC [Ecotrin Low Dose] 81 mg PO DAILY@169905/10/17 05/10/17 History diphenhydrAMINE [Benadryl] 25 mg PO HS PRN 05/10/17 05/10/17 History Allergies Allergy/AdvReac Type Severity Reaction Status Date / Time amoxicillin trihydrate Allergy Nausea & Verified 05/10/17 11:18 [From Augmentin] Vomiting cephalexin monohydrate Allergy Nausea & Verified 05/10/17 11:18 [From Keflex] Vomiting codeine Allergy Rash/Hives Verified 05/10/17 11:18 morphine Allergy Rash/Hives Verified 05/10/17 11:18 potassium clavulanate Allergy Nausea & Verified 05/10/17 11:18 [From Augmentin] Vomiting tramadol HCl [From Ultram] AdvReac Vomiting Verified 05/10/17 11:18 occuflux Allergy Swelling Uncoded 05/10/17 10:57 Physical Exam Vitals: Vital Signs Temp Pulse Resp BP Pulse Ox 05/11/17 12:15 98.1 F 94 18 118/67 99 05/11/17 08:05 97.1 F L 102 H 18 117/75 97 05/11/17 04:00 96 18 05/11/17 00:00 96 18 05/10/17 20:00 97.4 F L 96 18 119/74 98 05/10/17 16:00 98.1 F 102 H 16 137/74 97 Intake and Output 05/11/17 05/11/17 05/11/17 06:59 14:59 22:59 Intake Total 63.25 707.909 Balance 63.25 707.909 Intake: Intake, IV Titration 63.25 407.909 Amount Heparin Sodium,Porcine/ 63.25 407.909 D5w Pmx 25,000 unit In Dextrose/Water 1 500ml. bag @ 18 UNITS/KG/HR 41. 63 mls/hr IV .Q12H1M PABLO Rx#:[id number] Oral 300 Other: Voiding Method Toilet # Voids 1 1 Weight 114.7 kg - Constitutional General appearance: no average body habitus, cooperative, no disheveled, no mild distress, no morbidly obese, no no acute distress, obese, no severe distress, no thin - EENT Eyes: no abnormal pupil, no anicteric sclerae, no disc margins sharp, no edentulous, no EOMI, no PERRLA, no fundus normal, no photophobia, no dentition normal, no poor dentition, no ptosis, no scleral icterus, normal appearance ENT: no hard of hearing, no hearing grossly normal, no NA/AT, normal oropharynx , no other, no pharyngeal erythema, no thrush, no tonsillar exudates, no tonsillar swelling Ears: bilateral: normal - Neck Neck: no lymphadenopathy, normal ROM, no other, no rigidity, no stridor, no thyromegaly Carotids: bilateral: upstroke normal Thyroid: bilateral: normal size - Respiratory Respiratory: bilateral: diminished, dullness, rales - Cardiovascular Rhythm: regular Heart sounds: normal: S1, S2 Abnormal Heart Sounds: S3 Gallop - Gastrointestinal General gastrointestinal: no absent bowel sounds, no decreased bowel sounds, distended, no hepatomegaly, no hyperactive bowel sounds, no normal bowel sounds , no organomegaly, no rigid, no scaphoid, soft, no splenomegaly, no tenderness, no umbilical hernia, no ventral hernia - Integumentary Examining the right leg does not have any sign and symptom of acute blood clot or DVT at this point still have slight swelling compared to the other side which is an old since her lost blood clot positive pulses dorsalis pedis and posterior Tibial no calf tenderness. Integumentary: no calor, no cellulitis, no cyanotic, no decreased turgor, no flushed, no jaundiced, normal, no normal turgor, pale, no rash, no ulcer - Neurologic Neurologic: CNII-XII intact - Musculoskeletal Musculoskeletal: gait normal, generalized weakness - Psychiatric Psychiatric: A&O x's 3 Results CBC & Chem 7: 05/11/17 07:13 05/11/17 07:13 Labs: Abnormal Lab Results - Last 24 Hours (Table) 05/10/17 05/11/17 05/11/17 Range/Units 17:40 01:02 07:13 APTT 31.3 H 32.6 H (22.0-30.0) sec Sodium 135 L (137-145) mmol/L Albumin 3.3 L (3.5-5.0) g/dL 05/11/17 05/11/17 Range/Units 07:13 14:00 APTT 36.7 H 61.5 H (22.0-30.0) sec Sodium (137-145) mmol/L Albumin (3.5-5.0) g/dL Thrombosis Risk Factor Assmnt - DVT/VTE Prophylaxis DVT/VTE Prophylaxis: Pharmacologic Prophylaxis ordered - Choose All That Apply Any of the Below Risk Factors Present?: Yes Each Factor Represents 1 point: Obesity (BMI >25) Other Risk Factors: Yes Each Risk Factor Represents 3 Points: Positive Factor V Leiden, History of DVT/ PE Other congenital or acquired thrombophilia - If yes, enter type in comment: No Thrombosis Risk Factor Assessment Total Risk Factor Score: 7 Thrombosis Risk Factor Assessment Level: High Risk Assessment and Plan Plan: 1 right leg DVT with possible new onset of PE: Patient is already on heparin drip continue to watch PTT to keep it therapeutic still waiting for Dr. Bhat for further discussion and management in the meanwhile repeat Doppler of the leg at [facility] and compared to the last one in 2014 to see if there is any evidence based for new clot of this is an old clot only. Also to see if there is any higher on for PE echocardiogram was order to measure the pressure in the pulmonary artery if it's high that confirm PE otherwise patient will be on anticoagulation. 2 history of familial coagulopathy: Patient is on life time treatment with anticoagulation was on Xarelto which was not recommended by hematology since she gets she was supposed to be switched either to Lovenox subcutaneous or high dose of heparin subcutaneous twice a day which apparently patient has not done either. Patient will be seen in hematology for further management. 3 asthma: Has been under control no flareup lately. 4 history of colitis: Patient has no flareup no sign of bleeding. 5 history of MRSA: Has not had any recent infection still precaution in the hospital are made. 6 19 weeks: Continue to see [employer]. CODE STATUS: Full code. Expectation from this admission: Patient in the hospital for more than 2 nights.
--- NOTE | 2017-05-11 22:16 | P.CONS ---
History of Present Illness - Reason for Consult Consult date: 05/11/17 Hypercoagulable state. Current . Anticoagulation - History of Present Illness The patient is a 32-year-old lady, well known to myself. She has known hypercoagulable state, with factor V Leiden as well as lupus anticoagulant. She has had multiple miscarriages in the past, as well as extensive right lower extremity DVT in 2015. She was previously seen, more than 2 years ago, for anticoagulation recommendations as she had become . However she chose to terminate that . She has been on Xarelto since then. She she became again about 4 months ago . She was referred to maternal medicine at [facility]. It was recommended that she be changed over to Lovenox or unfractionated heparin, as enough data to prove safety of Xarelto and is not available. The patient was seen in the office last month, and a prescription for full dose, subcutaneous unfractionated heparin was given. At the same time, we attempted to obtain Lovenox for her. Preauthorization for the same was ultimately obtained. However the co-pay was too high for the patient to afford. She stated that she had never started the subcutaneous heparin, as she has resumed that the pending preauthorization was for that medication. Subsequently, according to her, her pharmacy claimed that they had not received the prescription for unfractionated heparin ! She did continue on Xarelto during this time. She states that she did make MFM at [facility] aware of the same, and they and they approved of doing so, while waiting to start unfractionated heparin or Lovenox. Late last week, the patient states that she felt some heaviness and tingling in her right lower extremity. She had a venous Doppler done. The results were faxed to us yesterday, noting a DVT involving the common femoral vein and extending into the popliteal vein. She was therefore sent in to the emergency room. Case will extensively discussed with the emergency room physician and it was recommended that the patient be placed on IV heparin In the emergency room, she states that she felt some palpitations, and was beating fast. She'll not sure if this was an anxiety issue. Given her , it was felt that a CTA, or VQ scan would carry a risk of radiation exposure to the fetus. As she was would be placed on IV heparin anyway, these studies were not ordered. Consult was placed for further evaluation and recommendations Review of Systems Constitutional: Denies chills, Denies fever Eyes: denies blurred vision, denies pain Ears: deny: decreased hearing, ear discharge, earache, tinnitus Ears, nose, mouth and throat: Denies headache, Denies sore throat Cardiovascular: Reports as per HPI, Reports palpitations, Reports shortness of breath Respiratory: Reports dyspnea (Questionable) Genitourinary: Denies dysuria, Denies hematuria Menstruation: Reports postmenopausal Musculoskeletal: Reports as per HPI, Reports leg numbness/tingling Integumentary: Denies pruritus, Denies rash Neurological: Denies numbness, Denies weakness Psychiatric: Reports anxiety Endocrine: Denies fatigue, Denies weight change Hematologic/Lymphatic: Reports thrombophilia Past Medical History Past Medical History: Asthma, Blood Disorder, Deep Vein Thrombosis (DVT), GERD/ Reflux, Pneumonia Additional Past Medical History / Comment(s): pt is lt side dominant.chronic back pain pylonidial cyst; occasional irregular heart beat(pac's) related to stress; 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 9 miscarriages History of Any Multi-Drug Resistant Organisms: MRSA Year Discovered:: 2009 MDRO Source:: Polynoidal cyst Past Surgical History: Adenoidectomy, Back Surgery, Cholecystectomy, Tonsillectomy Additional Past Surgical History / Comment(s): pylonidial cyst 2002, 2 d&c related to miscarriges Past Anesthesia/Blood Transfusion Reactions: No Reported Reaction Smoking Status: Former smoker - Past Family History Mother Family Medical History: AFIB, Congestive Heart Failure (CHF), Musculoskeletal Disorder Additional Family Medical History / Comment(s): cardiomyopathy, muscular dystrophy Father Family Medical History: Hyperlipidemia, Hypertension, Myocardial Infarction ([place]) Brother(s) Family Medical History: Musculoskeletal Disorder Additional Family Medical History / Comment(s): at 17 from muscular dystrophy Medications and Allergies Home Medications Medication Instructions Recorded Confirmed Type Acetaminophen Tab [Tylenol Tab] 500 mg PO Q6HR PRN 04/12/17 05/10/17 History Efe-Igwd-Ufgwv Acid 1 cap PO DAILY@169904/12/17 05/10/17 History [-U Capsule (formulary)] Rivaroxaban [Xarelto] 20 mg PO DAILY@169904/12/17 05/10/17 History Aspirin EC [Ecotrin Low Dose] 81 mg PO DAILY@169905/10/17 05/10/17 History diphenhydrAMINE [Benadryl] 25 mg PO HS PRN 05/10/17 05/10/17 History Allergies Allergy/AdvReac Type Severity Reaction Status Date / Time amoxicillin trihydrate Allergy Nausea & Verified 05/10/17 11:18 [From Augmentin] Vomiting cephalexin monohydrate Allergy Nausea & Verified 05/10/17 11:18 [From Keflex] Vomiting codeine Allergy Rash/Hives Verified 05/10/17 11:18 morphine Allergy Rash/Hives Verified 05/10/17 11:18 potassium clavulanate Allergy Nausea & Verified 05/10/17 11:18 [From Augmentin] Vomiting tramadol HCl [From Ultram] AdvReac Vomiting Verified 05/10/17 11:18 occuflux Allergy Swelling Uncoded 05/10/17 10:57 Physical Exam Vitals: Vital Signs Temp Pulse Resp BP BP Pulse Ox 05/11/17 20:00 97.4 F L 84 18 132/84 99 05/11/17 15:15 97.0 F L 98 18 126/76 98 05/11/17 12:15 98.1 F 94 18 118/67 99 05/11/17 08:05 97.1 F L 102 H 18 117/75 97 05/11/17 04:00 96 18 05/11/17 00:00 96 18 Intake and Output 05/11/17 05/11/17 05/11/17 06:59 14:59 22:59 Intake Total 63.25 736.750 932 Balance 63.25 736.750 932 Intake: IV 632 Heparin Sodium,Porcine/ 552 D5w Pmx 25,000 unit In Dextrose/Water 1 500ml. bag @ 18 UNITS/KG/HR 41. 63 mls/hr IV .Q12H1M [facility] Rx#:[id number] Sodium Chloride 0.9% 1, 80 000 ml @ 100 mls/hr IV . Q10H ONE Rx#:[id number] Intake, IV Titration 63.25 436.750 Amount Heparin Sodium,Porcine/ 63.25 436.750 D5w Pmx 25,000 unit In Dextrose/Water 1 500ml. bag @ 18 UNITS/KG/HR 41. 63 mls/hr IV .Q12H1M [facility] Rx#:[id number] Oral 300 300 Other: Voiding Method Toilet Toilet # Voids 1 1 2 Weight 114.7 kg - Constitutional General appearance: no acute distress - EENT Eyes: EOMI, PERRLA ENT: hearing grossly normal, normal oropharynx - Neck Neck: no lymphadenopathy Thyroid: bilateral: normal size - Respiratory Respiratory: bilateral: CTA - Cardiovascular Rhythm: regular Heart sounds: normal: S1, S2 - Gastrointestinal General gastrointestinal: normal bowel sounds, soft - Integumentary Integumentary: normal - Neurologic Neurologic: CNII-XII intact - Musculoskeletal No leg swelling, discoloration, venous cords or tenderness noted - Psychiatric Psychiatric: A&O x's 3, appropriate affect Results CBC & Chem 7: 05/11/17 07:13 05/11/17 07:13 Labs: Abnormal Lab Results - Last 24 Hours (Table) 05/11/17 05/11/17 05/11/17 Range/Units 01:02 07:13 07:13 APTT 32.6 H 36.7 H (22.0-30.0) sec Sodium 135 L (137-145) mmol/L Albumin 3.3 L (3.5-5.0) g/dL 05/11/17 Range/Units 14:00 APTT 61.5 H (22.0-30.0) sec Sodium (137-145) mmol/L Albumin (3.5-5.0) g/dL Venous US: report reviewed Assessment and Plan (1) Acute DVT (deep venous thrombosis) Narrative/Plan: The patient's case is quite complete indicated, as noted in the HPI. She has known hypercoagulable conditions, specifically possible APL antibody positivity, and factor V Leiden positivity. She has had multiple miscarriages, as well as DVT previously. She is on lifelong anticoagulation. She is currently , but was on Xarelto , at that time her was diagnosed. While Xarelto does not appear to be associated with any specific abnormalities, sufficient data is not yet available for it to be formally approved as safe. Therefore changed to IV heparin, or Lovenox was recommended. Due to convenience, we did try to obtain Lovenox for her. We will the patient states that she could not afford the co-pay. In the meantime, we had prescribed high dose unfractionated subcutaneous heparin. The patient has not started that, given the circumstances as noted in the HPI. It was confirmed that the prescription was definitely sent by the office electronically. The patient was supposed to come to the office for PTT checking but did not keep his appointments. He states that she will not noncompliant, but did not come in because she had not yet started the UFH. In the meantime, she has continued on Xarelto, with [facility] being aware of the same. He is admitted because of concerns for a new DVT. Her current report was compared to the previous report from 2015. The DVT appears to be in the same area. Exam of the lower extremities is normal. Therefore it is quite possible that this is not a new event, but rather chronic residual DVT. Another Doppler has been ordered by the admitting service, which really compared to previous Dopplers including the one from 2015 to determine the same. Currently, the results were not certainly affect management, as the patient has to be changed over to Lovenox or heparin anyway. However completion of her , if this is not a new DVT, she can be transitioned back to Xarelto. On the other hand of this can be determined to be a new event, which would represent a failure of anticoagulation with Xarelto, she will need another medication. The patient's symptoms of palpitations and chest tightness were transient and nonspecific. Careful questioning by the admitting service, is felt that this may be transient anxiety attack. It is felt therefore that the potential risk of radiation exposure, from a CTA of the CAT scan is likely not justified. An echocardiogram has been ordered to check for evidence of right ventricular strain. Continue IV heparin for now. The office is actively working to determine the cost of full dose subcu heparin heparin versus Lovenox, as well as to obtain any assistance for her, if possible. Unfortunately, we do not have samples of Lovenox, or Arixtra available for her. The case was extensively discussed with the admitting service. Status: Acute
[2017-05-12 01:12] VITALS: RESP 18
[2017-05-12] MEDS: HEPARIN SODIUM,PORCINE/D5W PMX 25,000 UNIT in DEXTROSE/WATER 1 500ML.BAG IV SCH (07:27)
[2017-05-12] MEDS: FAMOTIDINE 20 MG TAB PO SCH (08:44)
[2017-05-12 09:57] VITALS: PULSE 79
[2017-05-12 14:13] VITALS: BP 112/64; TEMP 97.1
--- NOTE | 2017-05-12 14:40 | P.DS ---
Providers Date of admission: 05/10/17 12:21 Expected date of discharge: 05/12/17 Attending physician: Ana Franco Consults: 05/10/17 12:20 Consult Physician Urgent Consulting Provider: Solomon Bhat Consult Reason/Comments: Acute DVT Do you want consulting provider notified?: Yes Consult Physician Urgent Consulting Provider: Parish Larios Consult Reason/Comments: Do you want consulting provider notified?: Yes Primary care physician: General Acute Hospital Course: 32-year-old mildly overweight female one of Dr. Franco's patient, who apparently had complicated with multiple miscarriages in the past and has been seen at [facility]. Patient had recurrent DVT's with thromboses and severe coagulopathy, she has been on medication for long time she was refer for Doppler of the leg at [facility] and done few days earlier apparently result came back consistent with the possibility of a new DVT. Result were communicated to Dr. Bhat's office who seen patient from hematology at some point for her long-standing coagulopathy on lifetime management. Patient apparently has been on Xarelto before her and was converted to high-dose heparin subcutaneous and supposed to have PTT testing at Dr. Bhat office on weekly basis which she has not done. Apparently with the new blood clot in the leg patient was called and advised to come to the hospital and been hospitalized for a new DVT require acute treatment. Shortly after arrival to the emergency department and the hospital patient developed to have significant shortness of breath dyspnea and mild hypoxia with her and current condition could not send her for CTA or VQ scan patient was treated with heparin drip after bolus to treated as an acute active pulmonary embolism till final decision is made. I met with the patient for the first time today and talking to her it sounds that patient never started on heparin subcutaneous but she has been taking Xarelto all along and if this is failure to Xarelto despite being on treatment on regular basis patient might need to be converted to subcutaneous Lovenox or other type of anticoagulation decided by hematology for the rest of her life. Also discussed with the patient and her if this was a new blood clot will repeat another Doppler compare it with the last one done in 2014 and have the radiologist and a vascular review both if this is a new clot further management with more aggressive anticoagulation to be done if no new blood clot.of PE still very low but will do echocardiogram as well if the pulmonary pressure is very normal. If this is pulmonary embolism is very low as well and there is no reason to do any testing since patient is given a be on anticoagulation anyway. 05/12: Patient had a repeat Doppler of her right leg, showed residual from previous DVT, only minimal wall thickening present at the level of the common femoral vein. She was consulted by Dr. Bhat who discontinued her Xarelto, and started her on heparin. She was also consulted by MACHINE DESIGN TEACHER. The patient will be discharged with Lovonex and follow-up with Dr. Bhat, Dr. Franco and JOSIAS at [facility]. 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 Maru Obrien nurse practitioner acting as scribe for signing physician. Plan - Discharge Summary New Discharge Prescriptions: New Calcium Carbonate [Tums] 500 mg PO QID PRN PRN Reason: Heartburn Continue Acetaminophen Tab [Tylenol] 500 mg PO Q6HR PRN PRN Reason: Pain Rivaroxaban [Xarelto] 20 mg PO DAILY@1700 Ttj-Cqyo-Tqgvi Acid [-U Capsule (formulary)] 1 cap PO DAILY@ 1700 diphenhydrAMINE [Benadryl] 25 mg PO HS PRN PRN Reason: Insomnia Aspirin EC [Ecotrin Low Dose] 81 mg PO DAILY@1700 Discharge Medication List Acetaminophen Tab [Tylenol] 500 mg PO Q6HR PRN 04/12/17 [History] Zom-Sabx-Ndnzx Acid [-U Capsule (formulary)] 1 cap PO DAILY@ 1700 04/12/17 [History] Rivaroxaban [Xarelto] 20 mg PO DAILY@1700 04/12/17 [History] Aspirin EC [Ecotrin Low Dose] 81 mg PO DAILY@169905/10/17 [History] diphenhydrAMINE [Benadryl] 25 mg PO HS PRN 05/10/17 [History] Calcium Carbonate [Tums] 500 mg PO QID PRN 05/12/17 [Rx] Follow up Appointment(s)/Referral(s): Solomon Bhat MD [STAFF PHYSICIAN] - 1 Week Ana Franco MD [Primary Care Provider] - 1 Week
[2017-05-12] MEDS ORDERED: ENOXAPARIN 120 MG/0.8 ML SYRINGE SQ STA (14:52)
--- NOTE | 2017-05-12 22:41 | P.PN ---
Subjective The patient denies any new complaints. She has not had any symptoms related to her lower extremity, or recurrent shortness of breath or chest discomfort. She is tolerating IV heparin well. Objective - Vital Signs Vital signs: Vital Signs Temp 97.1 F L 05/12/17 12:20 Pulse 79 05/12/17 12:20 Resp 18 05/12/17 12:20 BP 112/64 05/12/17 12:20 Pulse Ox 98 05/12/17 12:20 Intake & Output 05/12/17 05/12/17 05/13/17 06:59 18:59 06:59 Intake Total 1132 1588 Balance 1132 1588 Weight 114.3 kg Intake: IV 632 552 Heparin Sodium,Porcine/ 552 552 D5w Pmx 25,000 unit In Dextrose/Water 1 500ml. bag @ 18 UNITS/KG/HR 41. 63 mls/hr IV .Q12H1M [facility] Rx#:[id number] Sodium Chloride 0.9% 1, 80 000 ml @ 100 mls/hr IV . Q10H ONE Rx#:[id number] Intake, IV Titration 500 500 Amount Heparin Sodium,Porcine/ 500 500 D5w Pmx 25,000 unit In Dextrose/Water 1 500ml. bag @ 18 UNITS/KG/HR 41. 63 mls/hr IV .Q12H1M [facility] Rx#:[id number] Oral 536 Other: Voiding Method Toilet # Voids 3 - Constitutional General appearance: Present: no acute distress - EENT Eyes: Present: PERRLA ENT: Present: hearing grossly normal, normal oropharynx - Respiratory Respiratory: bilateral: CTA - Cardiovascular Rhythm: regular Heart sounds: normal: S1, S2 - Gastrointestinal General gastrointestinal: Present: normal bowel sounds, soft - Integumentary Integumentary: Present: normal - Neurologic Neurologic: Present: CNII-XII intact - Musculoskeletal Musculoskeletal: Present: strength equal bilaterally - Psychiatric Psychiatric: Present: A&O x's 3 - Labs CBC & Chem 7: 05/11/17 07:13 05/11/17 07:13 Labs: Abnormal Lab Results - Last 24 Hours (Table) 05/12/17 Range/Units 11:29 APTT 66.4 H (22.0-30.0) sec Assessment and Plan (1) Acute DVT (deep venous thrombosis) Narrative/Plan: The patient continues on IV heparin, with no new symptoms, and good tolerance. A repeat Dopplers and radiology interpretation was reviewed . This seems to indicate that the the current findings are most likely residuum from the previous clot rather than new one. Regarding outpatient therapy, we have had extensive contact with the patient' s pharmacy and insurance. They have indicated, that the patient's co-pay for 120 mg of Lovenox subcu every 12 hrs/ one month would be about $200. The cost for subcutaneous unfractionated heparin would be the same, as this is a standard co-pay for injectables. Her insurance company was not willing to lower the co-pay. The above was discussed with the patient. She and her feel that they can afford to pay $200 per month for the next 4-5 months. Since the cost would be the same for Lovenox and unfractionated heparin, Lovenox obviously be the preferred choice given its much greater reliability , and lack of need for regular monitoring. A prescription for the same will be sent in to the patient's pharmacy. The patient will receive her first dose of Lovenox inpatient, and heparin be stopped at the same time. She can then be discharged from our standpoint, whenever okay with the admitting service. She will continue full dose subcutaneous Lovenox as an outpatient. The patient's echocardiogram showed some enlargement of the right ventricle, but no obvious right radicular strain or increased pulmonary artery pressures. I will confirm with radiology, that they feel that the DVT is not acute. Assuming that is the case, there would be no evidence for failure of Xarelto. In that case, after delivery, the patient can transition back to Xarelto The above plan was discussed in detail with the patient and her , and they expressed full understanding. Status: Acute
== END 2017-05-12 16:55 | disposition home or self-care (01) | DRG 781 ==
LOC: EC 10:49 → 5MS5E 12:21 → 6SEL 12:46
PROVIDERS: ADMIT Family Medicine; ATTEND Family Medicine
DX: O22.32 Deep phlebothrombosis in pregnancy, second trimester (principal); O99.612 Diseases of the digestive system complicating pregnancy, second trimester; D68.51 Activated protein C resistance; O99.112 Other diseases of the blood and blood-forming organs and certain disorders involving the immune mechanism complicating pregnancy, second trimester; I82.5Z1 Chronic embolism and thrombosis of unspecified deep veins of right distal lower extremity; K50.90 Crohn's disease, unspecified, without complications; G62.9 Polyneuropathy, unspecified; O99.89 Other specified diseases and conditions complicating pregnancy, childbirth and the puerperium; O99.342 Other mental disorders complicating pregnancy, second trimester; O99.212 Obesity complicating pregnancy, second trimester; F41.9 Anxiety disorder, unspecified; J45.909 Unspecified asthma, uncomplicated; K21.9 Gastro-esophageal reflux disease without esophagitis; M54.30 Sciatica, unspecified side; O99.512 Diseases of the respiratory system complicating pregnancy, second trimester; R09.02 Hypoxemia; F32.9 Major depressive disorder, single episode, unspecified; G89.29 Other chronic pain; M54.9 Dorsalgia, unspecified; Z3A.19 19 weeks gestation of pregnancy; Z79.01 Long term (current) use of anticoagulants; Z79.82 Long term (current) use of aspirin; Z79.899 Other long term (current) drug therapy; Z86.14 Personal history of Methicillin resistant Staphylococcus aureus infection; Z87.891 Personal history of nicotine dependence; Z88.1 Allergy status to other antibiotic agents; Z88.5 Allergy status to narcotic agent; Z82.49 Family history of ischemic heart disease and other diseases of the circulatory system
CPT/HCPCS: 36415; 80053; 85025; 85027; 85610; 85730; 93005; 93306; 99284

== ENCOUNTER → 2017-05-23 | Outpatient (CLI) | payer OTHER | END | disposition home or self-care (01) | LOC: LABWHC1 11:36 | DX: O22.32 Deep phlebothrombosis in pregnancy, second trimester (principal); Z3A.00 Weeks of gestation of pregnancy not specified | CPT/HCPCS: 36415 ==

== ENCOUNTER → 2018-07-19 | Outpatient (CLI) | payer OTHER | LOC: LABWHC1 11:14 | PROVIDERS: ATTEND Obstetrics & Gynecology | DX: N92.5 Other specified irregular menstruation (principal) | CPT/HCPCS: 36415; 84702; 86850; 86900; 86901 ==

== ENCOUNTER → 2018-07-21 | Outpatient (CLI) | payer OTHER | END | disposition home or self-care (01) | LOC: LABWHC1 16:37 | PROVIDERS: ATTEND Obstetrics & Gynecology | DX: N92.5 Other specified irregular menstruation (principal) | CPT/HCPCS: 36415; 84702 ==

== ENCOUNTER → 2021-05-25 | Outpatient (CLI) | payer OTHER ==
--- NOTE | 2021-05-25 21:12 | XR ---
EXAMINATION TYPE: XR chest 2V DATE OF EXAM: 05/25/2021 COMPARISON: 03/11/2015 HISTORY: 36-year-old female R05, cough TECHNIQUE: Frontal and lateral views FINDINGS: The cardiomediastinal silhouette, aorta, and pulmonary vasculature are within normal limits. There ma y be some subtle central peribronchial cuffing. Otherwise, lungs and pleural spaces are clear. IMPRESSION: Some subtle changes may reflect bronchitis or chronic asthma. Otherwise, no acute process seen.
== END | disposition home or self-care (01) ==
LOC: RADXRMAIN 18:09
PROVIDERS: ATTEND Family Medicine
DX: R91.8 Other nonspecific abnormal finding of lung field (principal)
CPT/HCPCS: 71046

== ENCOUNTER → 2021-10-21 | Outpatient (CLI) | payer OTHER ==
--- NOTE | 2021-10-21 14:56 | US ---
EXAMINATION TYPE: US venous doppler duplex LE RT DATE OF EXAM: 10/21/2021 1:38 PM COMPARISON: NONE CLINICAL HISTORY: Z86.718 HX OF DVT. palpable red area on anterior portion of right calf, h/o DVT, on thinners SIDE PERFORMED: Right TECHNIQUE: The lower extremity deep venous system is examined utilizing real time linear array sonog mary with graded compression, doppler sonography and color-flow sonography. VESSELS IMAGED: Common Femoral Vein Deep Femoral Vein Greater Saphenous Vein * Femoral Vein Popliteal Vein Small Saphenous Vein * Proximal Calf Veins (* superficial vessels) Right Leg: Negative for DVT internal echoes with no flow seen at superficial varicose vein on ante rior calf tech impression relayed to Dr Franco at 1:40 IMPRESSION: 1. Right lower extremity ultrasound negative for deep venous thrombosis. 2. Note is made of thrombus through a superficial varicose vein anterior calf.
== END | disposition home or self-care (01) ==
LOC: RADUSWWP 13:16
PROVIDERS: ATTEND Family Medicine
DX: I82.811 Embolism and thrombosis of superficial veins of right lower extremity (principal); I86.8 Varicose veins of other specified sites

== ENCOUNTER → 2021-11-10 | Outpatient (CLI) | payer OTHER ==
[2021-11-10 19:30] LABS: African American GFR (CKD) 109.9 (60.0-200.0); Albumin 4.3 g/dL (3.8-4.9); Albumin/Globulin Ratio 1.43 (1.60-3.17); Anion Gap 14.3 mmol/L (10.00-18.00); BUN/Creat Ratio 19.5 Ratio (12.00-20.00); Blood Urea Nitrogen 15.6 mg/dL (9.0-27.0); Calcium 8.9 mg/dL (8.7-10.3); Carbon Dioxide 21.7 mmol/L (20.0-27.5); Non-African American GFR(CKD) 94.8 (60.0-200.0); Potassium 4.2 mmol/L (3.5-5.5); T4, Free (Free Thyroxine) 1.18 ng/dL (0.800-1.800); Total Bilirubin 0.4 mg/dL (0.30-1.20); Total Protein 7.3 g/dL (6.2-8.2)
[2021-11-10 19:44] LABS: Basophils # (A) 0.09 X 10*3/uL (0.00-0.10); Eosinophils # (A) 0.15 X 10*3/uL (0.04-0.35); Eosinophils % (A) 1.6 %; HCT 46.4 % (37.2-46.3); HGB 15.1 g/dL (12.0-15.0); Immature Grans, Automated 0.2 %; Lymphocytes # (A) 3.53 X 10*3/uL (0.90-5.00); Lymphocytes % (A) 37.8 %; MCH 32.9 pg (27.0-32.0); MCHC 32.5 g/dL (32.0-37.0); MCV 101.1 fL (80.0-97.0); Mean Platelet Volume 10.4 fL (9.5-12.2); Monocytes # (A) 0.52 X 10*3/uL (0.20-1.00); Monocytes % (A) 5.6 %; NRBC Per 100 WBC 0 /100 WBCS (0.0-0.0); Neutrophils # (A) 5.02 X 10*3/uL (1.80-7.70); Neutrophils % (A) 53.8 %; Platelet Count 321 X 10*3/uL (140-440); RBC 4.59 X 10*6/uL (4.10-5.20); RDW 12.7 % (11.5-14.5); WBC 9.33 X 10*3/uL (4.50-10.00)
[2021-11-10 22:13] LABS: Thyroid Peroxidase Antibodies <9.0 U/mL (0.0-33.0)
== END | disposition home or self-care (01) ==
LOC: LABWHC1 10:31
PROVIDERS: ATTEND Family Medicine
DX: E04.1 Nontoxic single thyroid nodule (principal)
CPT/HCPCS: 36415; 80053; 84432; 84439; 84443; 85025; 86376

== ENCOUNTER → 2021-11-27 | Outpatient (CLI) | payer OTHER ==
--- NOTE | 2021-11-27 11:30 | US ---
EXAMINATION TYPE: US thyroid st tissue head/neck DATE OF EXAM: 11/27/2021 COMPARISON: NONE CLINICAL HISTORY: E04.1 thyroid nodule. GLAND SIZE: Right Lobe: 5.0 x 1.2 x 1.5 cm Overall Parenchyma: homogenous Left Lobe: 4.5 x 1.1 x 1.6 cm Overall Parenchyma: homogeneous Isthmus Thickness: 0.2 cm NODULES RIGHT: # of nodules measured on right: 0 LEFT: # of nodules measured on left: 1 1. 0.6 X 0.4 x 0.5 cm mixed cystic and solid, anechoic nodule, which is wider than tall, with ember h margins, without echogenic foci. No prior ISTHMUS: # of nodules measured in the isthmus: 0 At patients palpable there are 2 lymph nodes adjacent to each other. The largest measures 1.3 x 0.8 x 1.5cm IMPRESSION: 1. Benign findings within the thyroid. 2. Palpable abnormality corresponds to adjacent lymph nodes. 2017 ACR TI-RADS LEVEL: TR-RADS 1 - BENIGN: No FNA *Highest TI-RADS level nodule reported
== END | disposition home or self-care (01) ==
LOC: RADUSWWP 09:38
PROVIDERS: ATTEND Family Medicine
DX: R94.6 Abnormal results of thyroid function studies (principal)
CPT/HCPCS: 76536

== ENCOUNTER → 2022-02-05 | Outpatient (CLI) | payer OTHER ==
--- NOTE | 2022-02-05 12:51 | US ---
EXAMINATION TYPE: US venous doppler duplex LE LT DATE OF EXAM: 02/05/2022 12:38 PM COMPARISON: NONE CLINICAL HISTORY: M79.662 PAIN IN LEFT LOWER LEG. Hx of chronic DVT in right leg. Patient is on blood thinners. There is a bruise distal left thigh that has been there one day. SIDE PERFORMED: Left TECHNIQUE: The lower extremity deep venous system is examined utilizing real time linear array sonog mary with graded compression, doppler sonography and color-flow sonography. VESSELS IMAGED: Common Femoral Vein Deep Femoral Vein Greater Saphenous Vein * Femoral Vein Popliteal Vein Small Saphenous Vein * Proximal Calf Veins (* superficial vessels) Left Leg: Negative for DVT Hyperechoic area seen where the bruise is, possible hematoma. IMPRESSION: 1. Left lower extremity ultrasound negative for deep venous thrombosis. 2. Technologist reports a ill-defined hypoechoic area at the level of the patient's thigh bruise coul d be a contusion.
== END | disposition home or self-care (01) ==
LOC: RADUSWWP 12:04
PROVIDERS: ATTEND Internal Medicine Geriatric Medicine
DX: M79.662 Pain in left lower leg (principal); Z86.718 Personal history of other venous thrombosis and embolism; Z79.01 Long term (current) use of anticoagulants

== ENCOUNTER 2023-12-12 18:45 | Inpatient (IN) | payer OTHER ==
[2023-12-12] MEDS: LORazepam 2 MG/ML INJ IV STA (19:25)
[2023-12-12] MEDS: SODIUM CHLORIDE 0.9% 1,000 ML IV ONE (19:25)
[2023-12-12] MEDS: DILTIAZEM 125 MG in SODIUM CHLORIDE 0.9% 100 ML IV SCH (19:26)
[2023-12-12] MEDS: DILTIAZEM DRIP BOLUS FROM BAG 1 MG SOLN IV ONE (19:26)
--- NOTE | 2023-12-12 19:27 | ED ---
General Adult HPI - General Chief complaint: Chest Pain Stated complaint: Chest Pain,Sob Time Seen by Provider: 12/12/23 19:06 Source: patient Mode of arrival: ambulatory Limitations: no limitations - History of Present Illness Initial comments: This patient is a 38-year-old woman who presents with complaint that it feels like her heart is going to beat out of her chest. The patient states that symptoms started approximately 40 minutes ago. She states she had bent down to pick something and then when she stood back up her heart began racing. She had chest pain associated with this for the first 10 minutes. She was a little short of breath. The patient came directly here. Patient smokes approximately 1 pack/day, the patient does use energy drinks, but denies other sympathomimetics. Patient also has history of factor V Leiden and previous DVT. She does take Xarelto and has not missed any doses. Onset/Timin -: minutes(s) Location: chest Radiation: non-radiation Quality: aching Consistency: now resolved Improves with: none Worsens with: none Associated Symptoms: other (Palpitations) Treatments Prior to Arrival: none - Related Data Home Medications Medication Instructions Recorded Confirmed Rivaroxaban [Xarelto] 20 mg PO HS 12/12/23 12/13/23 Sulfamethox-Tmp 800-160Mg [Bactrim 1 tab PO Q12HR 12/12/23 12/12/23 DS 800-160 mg] Previous Rx's Medication Instructions Recorded Metoprolol Succinate (ER) [Toprol 25 mg PO DAILY #30 tab 12/13/23 XL] Nitroglycerin Sl Tabs [Nitrostat] 0.4 mg SUBLINGUAL Q5M PRN #30 tab 12/13/23 Allergies Allergy/AdvReac Type Severity Reaction Status Date / Time codeine Allergy Rash/Hives Verified 05/10/17 11:18 morphine Allergy Rash/Hives Verified 05/10/17 11:18 amoxicillin trihydrate AdvReac Nausea & Verified 12/12/23 18:55 [From Augmentin] Vomiting cephalexin monohydrate AdvReac Nausea & Verified 12/12/23 18:55 [From Keflex] Vomiting potassium clavulanate AdvReac Nausea & Verified 12/12/23 18:55 [From Augmentin] Vomiting tramadol HCl [From Ultram] AdvReac Vomiting Verified 05/10/17 11:18 occuflux Allergy Swelling Uncoded 05/10/17 10:57 Review of Systems ROS Statement: Those systems with pertinent positive or pertinent negative responses have been documented in the HPI. ROS Other: All systems not noted in ROS Statement are negative. Constitutional: Denies: fever, chills Respiratory: Reports: dyspnea. Denies: cough, wheezes, hemoptysis Cardiovascular: Reports: palpitations. 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 9 miscarriages History of Any Multi-Drug Resistant Organisms: MRSA Date of last positivie culture/infection: 2009 MDRO Source:: Polynoidal cyst Past Surgical History: Adenoidectomy, Back Surgery, Cholecystectomy, Tonsillectomy Additional Past Surgical History / Comment(s): pylonidial cyst 2002, 2 d&c related to miscarriges Past Anesthesia/Blood Transfusion Reactions: No Reported Reaction Past Psychological History: Anxiety, Depression Smoking Status: Current every day smoker Past Alcohol Use History: None Reported Past Drug Use History: None Reported, Marijuana - Past Family History Mother Family Medical History: AFIB, Congestive Heart Failure (CHF), Musculoskeletal Disorder Additional Family Medical History / Comment(s): cardiomyopathy, muscular dystrophy Father Family Medical History: Hyperlipidemia, Hypertension, Myocardial Infarction (VT) Brother(s) Family Medical History: Musculoskeletal Disorder Additional Family Medical History / Comment(s): at 17 from muscular dystrophy General Exam Limitations: no limitations General appearance: alert, in no apparent distress Head exam: Present: atraumatic, normocephalic Eye exam: Present: normal appearance. Absent: scleral icterus, conjunctival injection Neck exam: Present: normal inspection Respiratory exam: Present: normal lung sounds bilaterally. Absent: respiratory distress, wheezes, rales, rhonchi, stridor, accessory muscle use Cardiovascular Exam: Present: tachycardia, irregular rhythm, normal heart so unds. Absent: systolic murmur, diastolic murmur, rubs, gallop GI/Abdominal exam: Present: soft. Absent: distended, tenderness, guarding, rebound, rigid, mass Extremities exam: Present: normal inspection, normal capillary refill. Absent: pedal edema, calf tenderness Back exam: Present: normal inspection. Absent: CVA tenderness (R), CVA tenderness (L) Neurological exam: Present: alert Skin exam: Present: warm, dry, intact, normal color. Absent: rash Course Vital Signs 12/12/23 12/12/23 12/12/23 18:52 19:51 20:22 Temperature 97.5 F L Pulse Rate 89 129 H 127 H Respiratory 20 18 18 Rate Blood Pressure 166/93 145/110 148/98 O2 Sat by Pulse 98 95 95 Oximetry 12/12/23 12/12/23 12/12/23 22:00 22:16 23:15 Temperature 97.9 F Pulse Rate 108 H 104 H 66 Respiratory 16 16 16 Rate Blood Pressure 113/93 119/97 111/69 O2 Sat by Pulse 97 97 97 Oximetry 12/13/23 12/13/23 12/13/23 00:00 02:00 04:18 Temperature Pulse Rate 73 95 73 Respiratory 16 16 16 Rate Blood Pressure 120/79 133/93 134/99 O2 Sat by Pulse 95 97 98 Oximetry 12/13/23 12/13/23 12/13/23 05:51 07:44 10:20 Temperature 98.0 F Pulse Rate 73 78 64 Respiratory 16 18 16 Rate Blood Pressure 141/104 152/99 124/86 O2 Sat by Pulse 98 98 97 Oximetry 12/13/23 12:10 Temperature 98.0 F Pulse Rate 54 L Respiratory 17 Rate Blood Pressure 139/85 O2 Sat by Pulse 99 Oximetry EKG Findings - EKG Results: EKG: interpreted by ERMD, sinus rhythm, normal axis, normal QRS EKG shows: tachycardia (Rate 145 bpm), atrial fibrillation - Blocks, Truman, Hypertrophy, ST Abn: Repolarization changes or abnormalities: nonspecific abnormality, ST segment, and/or T wave Medical Decision Making - Medical Decision Making This patient is a 38-year-old woman who is found to have new onset atrial fibrillation. The patient started on Cardizem and rate did improve however zehra antonio remained in atrial fibrillation. Case discussed with admitting physician and will have cardiology consultation. The patient did subsequently revert to sinus rhythm after more time with Cardize m drip. The patient had chest x-ray that I interpreted as negative for acute infiltrate, pneumothorax, congestive heart failure Was pt. sent in by a medical professional or institution (, [facility], [facility] [facility], urgent care, hospital, or fdc...) When possible be specific @ -[No] Did you speak to anyone other than the patient for history (EMS, parent, family, police, friend...)? What history was obtained from this source @ -[No] Did you review nursing and triage notes (agree or disagree)? Why? @ -[I reviewed and agree with nursing and triage notes] Were old charts reviewed (outside hosp., previous admission, EMS record, old EKG, old radiological studies, urgent care reports/EKG's, fdc records)? Report findings @ -[No old charts were reviewed] Differential Diagnosis (chest pain, altered mental status, abdominal pain women, abdominal pain men, vaginal bleeding, weakness, fever, dyspnea, syncope, headache, dizziness, GI bleed, back pain, seizure, CVA, palpatations, mental he alth, musculoskeletal)? @ -[Differential Chest Pain: Stable Angina, Unstable Angina, arrhythmia, STEMI, NSTEMI Aortic Dissection, Pneumothorax, Musculoskeletal, Esophageal Spasm GERD, Cholecystitis, Pancreatitis, Zoster, this is not meant to be an all-inclusive list. EKG interpreted by me (3pts min.). @ -[I interpreted as above X-rays interpreted by me (1pt min.). @ -[I interpreted as above CT interpreted by me (1pt min.). @ -[None done] U/S interpreted by me (1pt. min.). @ -[None done] What testing was considered but not performed or refused? (CT, X-rays, U/S, labs)? Why? @ -[None] What meds were considered but not given or refused? Why? @ -[None] Did you discuss the management of the patient with other professionals (professionals i.e. , PA, [employer], lab, RT, psych nurse, social media marketing manager, automation and controls manager, teacher, admissions officer, cyanide case hardener)? Give summary @ -[Case discussed with admitting physician and treatment recommendations are incorporated Was smoking cessation discussed for >3mins.? @ -[No] Was critical care preformed (if so, how long)? @ -[Yes, 35 minutes Were there social determinants of health that impacted care today? How? (Homelessness, low income, unemployed, alcoholism, drug addiction, transportation, low edu. Level, literacy, decrease access to med. care, senior care, rehab)? @ -[No] Was there de-escalation of care discussed even if they declined (Discuss DNR or withdrawal of care, Hospice)? DNR status @ -[No] What co-morbidities impacted this encounter? (DM, HTN, Smoking, COPD, CAD, Cancer, CVA, ARF, Chemo, Hep., AIDS, mental health diagnosis, sleep apnea, m orbid obesity)? @ -[None] Was patient admitted / discharged? Hospital course, mention meds given and route, prescriptions, significant lab abnormalities, going to OR and other pertinent info. @ -[Patient is admitted to have serial cardiac enzymes, echocardiogram, cardiology consultation Undiagnosed new problem with uncertain prognosis? @ -[No] Drug Therapy requiring intensive monitoring for toxicity (Heparin, Nitro, Insulin, Cardizem)? @ -[Cardizem Were any procedures done? @ -[No] Diagnosis/symptom? @ -[New onset atrial fibrillation with rapid ventricular rate Acute, or Chronic, or Acute on Chronic? @ -[Acute Uncomplicated (without systemic symptoms) or Complicated (systemic symptoms)? @ -[Uncomplicated Side effects of treatment? @ -[No] Exacerbation, Progression, or Severe Exacerbation? @ -[No] Poses a threat to life or bodily function? How? (Chest pain, USA, VT, pneumonia, PE, COPD, DKA, ARF, appy, cholecystitis, CVA, Diverticulitis, Homicidal, Suicidal, threat to staff... and all critical care pts) @ -[No] - Lab Data Result diagrams: 12/12/23 19:15 12/12/23 19:15 Lab Results 04/12/12/23 12/12/23 Range/Units 19:15 19:15 19:15 WBC 9.5 (3.8-10.6) k/uL RBC 4.66 (3.80-5.40) m/uL Hgb 15.3 (11.4-16.0) gm/dL Hct 47.0 H (34.0-46.0) % MCV 100.9 H (80.0-100.0) fL MCH 32.9 (25.0-35.0) pg MCHC 32.7 (31.0-37.0) g/dL RDW 12.5 (11.5-15.5) % Plt Count 291 (150-450) k/uL MPV 7.8 Neutrophils % 46 % Lymphocytes % 40 % Monocytes % 8 % Eosinophils % 2 % Basophils % 1 % Neutrophils # 4.4 (1.3-7.7) k/uL Lymphocytes # 3.7 (1.0-4.8) k/uL Monocytes # 0.8 (0-1.0) k/uL Eosinophils # 0.2 (0-0.7) k/uL Basophils # 0.1 (0-0.2) k/uL PT 10.1 (10.0-12.5) sec INR 0.9 (<1.2) APTT 25.4 (22.0-30.0) sec D-Dimer 0.31 (<0.60) mg/L FEU Sodium 137 (137-145) mmol/L Potassium 3.7 (3.5-5.1) mmol/L Chloride 106 (98-107) mmol/L Carbon Dioxide 16 L (22-30) mmol/L Anion Gap 15 mmol/L BUN 16 (7-17) mg/dL Creatinine 0.82 (0.52-1.04) mg/dL Est GFR (CKD-EPI)AfAm >90 (>60 ml/min/1.73 sqM) Est GFR (CKD-EPI)NonAf >90 (>60 ml/min/1.73 sqM) Glucose 173 H (74-99) mg/dL Calcium 8.5 (8.4-10.2) mg/dL Magnesium 1.8 (1.6-2.3) mg/dL Total Bilirubin 0.5 (0.2-1.3) mg/dL AST 46 H (14-36) U/L ALT 28 (4-34) U/L Alkaline Phosphatase 72 (38-126) U/L Troponin I (0.000-0.034) ng/mL Total Protein 7.5 (6.3-8.2) g/dL Albumin 4.0 (3.5-5.0) g/dL TSH 1.700 (0.465-4.680) mIU/L 12/12/23 Range/Units 19:15 WBC (3.8-10.6) k/uL RBC (3.80-5.40) m/uL Hgb (11.4-16.0) gm/dL Hct (34.0-46.0) % MCV (80.0-100.0) fL MCH (25.0-35.0) pg MCHC (31.0-37.0) g/dL RDW (11.5-15.5) % Plt Count (150-450) k/uL MPV Neutrophils % % Lymphocytes % % Monocytes % % Eosinophils % % Basophils % % Neutrophils # (1.3-7.7) k/uL Lymphocytes # (1.0-4.8) k/uL Monocytes # (0-1.0) k/uL Eosinophils # (0-0.7) k/uL Basophils # (0-0.2) k/uL PT (10.0-12.5) sec INR (<1.2) APTT (22.0-30.0) sec D-Dimer (<0.60) mg/L FEU Sodium (137-145) mmol/L Potassium (3.5-5.1) mmol/L Chloride (98-107) mmol/L Carbon Dioxide (22-30) mmol/L Anion Gap mmol/L BUN (7-17) mg/dL Creatinine (0.52-1.04) mg/dL Est GFR (CKD-EPI)AfAm (>60 ml/min/1.73 sqM) Est GFR (CKD-EPI)NonAf (>60 ml/min/1.73 sqM) Glucose (74-99) mg/dL Calcium (8.4-10.2) mg/dL Magnesium (1.6-2.3) mg/dL Total Bilirubin (0.2-1.3) mg/dL AST (14-36) U/L ALT (4-34) U/L Alkaline Phosphatase (38-126) U/L Troponin I <0.012 (0.000-0.034) ng/mL Total Protein (6.3-8.2) g/dL Albumin (3.5-5.0) g/dL TSH (0.465-4.680) mIU/L Disposition Clinical Impression: Atrial fibrillation with rapid ventricular response Disposition: HOME SELF-CARE Condition: Good Is patient prescribed a controlled substance at d/c from ED?: No
--- NOTE | 2023-12-12 19:35 | XR ---
EXAMINATION TYPE: XR chest 1V portable DATE OF EXAM: 12/12/2023 7:28 PM CLINICAL INDICATION:Female, 38 years old with history of dysrhythmia; COMPARISON: None TECHNIQUE: XR chest 1V portable Frontal view of the chest. FINDINGS: Lungs/Pleura: There is no evidence of pleural effusion, focal consolidation, or pneumothorax. Pulmonary vascularity: Unremarkable. Heart/mediastinum: Cardiomediastinal silhouette is unremarkable. Musculoskeletal: No acute osseous pathology. IMPRESSION: No acute cardiopulmonary disease/process.
[2023-12-12 19:38] LABS: Basophils # (A) 0.1 k/uL (0-0.2); Basophils % (A) 1 %; Eosinophils # (A) 0.2 k/uL (0-0.7); Eosinophils % (A) 2 %; HGB 15.3 gm/dL (11.4-16.0); Lymphocytes # (A) 3.7 k/uL (1.0-4.8); Lymphocytes % (A) 40 %; MCH 32.9 pg (25.0-35.0); MCHC 32.7 g/dL (31.0-37.0); MCV 100.9 fL (80.0-100.0); Mean Platelet Volume 7.8; Monocytes # (A) 0.8 k/uL (0-1.0); Monocytes % (A) 8 %; Neutrophils # (A) 4.4 k/uL (1.3-7.7); Neutrophils % (A) 46 %; Platelet Count 291 k/uL (150-450); RBC 4.66 m/uL (3.80-5.40); RDW 12.5 % (11.5-15.5); WBC 9.5 k/uL (3.8-10.6)
[2023-12-12 19:58] LABS: INR 0.9 (<1.2); Partial Thromboplastin Time 25.4 sec (22.0-30.0); Prothrombin Time 10.1 sec (10.0-12.5)
[2023-12-12 20:01] LABS: ALT 28 U/L (4-34); African American GFR (CKD) >90 (>60 ml/min/1.73 sqM); Anion Gap 15 mmol/L; Blood Urea Nitrogen 16 mg/dL (7-17); Calcium 8.5 mg/dL (8.4-10.2); Carbon Dioxide 16 mmol/L (22-30); Chloride 106 mmol/L (98-107); Glucose 173 mg/dL (74-99); Non-African American GFR(CKD) >90 (>60 ml/min/1.73 sqM); Sodium 137 mmol/L (137-145); Total Bilirubin 0.5 mg/dL (0.2-1.3); Total Protein 7.5 g/dL (6.3-8.2)
[2023-12-12 20:11] LABS: AST 46 U/L (14-36); Alkaline Phosphatase 72 U/L (38-126); Magnesium 1.8 mg/dL (1.6-2.3); Potassium 3.7 mmol/L (3.5-5.1)
[2023-12-12] MEDS: ENOXAPARIN 100 MG/ML SYRINGE SQ STA (20:43)
[2023-12-12] MEDS ORDERED: NITROGLYCERIN SL TABS 0.4 MG TAB SUBLINGUAL PRN (21:13)
[2023-12-12 22:02] LABS: Appearance,Urine Clear (Clear); Bilirubin,Urine Negative (Negative); Blood,Urine Negative (Negative); Color,Urine Colorless; Glucose,Urine (UA) Negative (Negative); Ketones,Urine Negative (Negative); Leukocyte Esterase,Urine Negative (Negative); Nitrite,Urine Negative (Negative); Protein,Urine Negative (Negative); Specific Gravity,Urine 1.016 (1.001-1.035); Urobilinogen,Urine <2.0 mg/dL (<2.0)
[2023-12-12 22:11] LABS: Amphetamine Screen,Urine Not Detected (NotDetected); Barbiturate Screen,Urine Not Detected (NotDetected); Benzodiazepines Screen,Urine Detected (NotDetected); Cocaine Screen,Urine Not Detected (NotDetected); Methadone Screen, Urine Not Detected (NotDetected); Opiate Screen,Urine Detected (NotDetected); Oxycodone Screen, Urine Detected (NotDetected); Phencyclidine Screen,Urine Not Detected (NotDetected); Tricyclic Antidepressant,Urine Not Detected (NotDetected); Urn Cannabinoid Scrn Not Detected (NotDetected)
[2023-12-13] MEDS ORDERED: ASPIRIN 325 MG TAB PO SCH (09:00)
[2023-12-13] MEDS ORDERED: ENOXAPARIN 100 MG/ML SYRINGE SQ SCH (09:00)
[2023-12-13 09:05] LABS: Chol/HDL Ratio 4.68 Ratio; LDL Cholesterol,Calculated 106.8 mg/dL (0.0-131.0)
--- NOTE | 2023-12-13 10:31 | P.CRDCN ---
History of Present Illness History of present illness: HISTORY OF PRESENT ILLNESS: This is a 38-year-old female with a past medical history significant for chronic right lower extremity DVT, factor V deficiency, antiphospholipid disorder, and nicotine dependence. Patient does not follow with a interventional radiology rn. We have been asked to see the patient in consultation for new onset atrial fibrillation. Patient examined at the bedside in the emergency room. Patient states she has been dealing with an infection in her eye for the past few days. She states that she was in her kitchen when she bent over and felt a lopez of fluid go to her eye. She states when she stood up she began to have palpitations. She states that she checked her pulse and was found to be tachycardic and came to the hospital for further evaluation. Patient was found to be in A-fib with RVR. She was started on IV Cardizem and subsequently converted to sinus mechanism. She is maintaining sinus mechanism this morning. She denies a history of atrial fibrillation. She is a current cigarette smoker and smokes 1 pack/day. She does report that she snores but she is unsure if she has obstructive sleep apnea. She is anticoagulated on an outpatient basis with Xarelto. She states that her dad had a history of CAD. She also reports her mom age 59. Her mother had a history of muscular dystrophy, atrial fibrillation, and pacemaker implantation DIAGNOSTICS: - EKG reveals A-fib with RVR. Repeat EKG reveals sinus mechanism. - Chest xray negative for acute process. - Laboratory data: WBC 9.5. Hemoglobin 15.3. Platelet count 291. D-dimer 0.31. Sodium 137. Potassium 3.7. BUN 16. Creatinine 0.82. Troponin negative x 3. TSH 1.70. - Current home cardiac medications include Xarelto 20 mg daily. REVIEW OF SYSTEMS: At the time of my exam: CONSTITUTIONAL: Denies fever or chills. HEENT: Denies blurred vision, vision changes, or eye pain. Denies hemoptysis CARDIOVASCULAR: Denies chest pain. Denies orthopnea. Denies PND. Denies palpitations RESPIRATORY: Denies shortness of breath. GASTROINTESTINAL: Denies abdominal pain. Denies nausea or vomiting. HEMATOLOGIC: Denies bleeding disorders. GENITOURINARY: Denies any blood in urine. SKIN: Denies pruitis. Denies rash. PHYSICAL EXAM: VITAL SIGNS: Reviewed. GENERAL: Well-developed in no acute distress. HEENT: Head is normocephalic. Pupils are equal, round. Sclerae anicteric. Mucous membranes of the mouth are moist. Neck supple. No JVD or thyromegaly LUNGS: Respirations even and unlabored. Lungs essentially clear to auscultation bilaterally. HEART: Regular rate and rhythm. S1 and S2 heard. ABDOMEN: Soft. Nondistended. Nontender. EXTREMITIES: Normal range of motion. No clubbing or cyanosis. Peripheral pulses intact. No lower extremity edema NEUROLOGIC: Awake and alert. Oriented x 3. ASSESSMENT: New onset atrial fibrillation with RVR, currently maintaining sinus mechanism Chronic right lower extremity DVT Factor V deficiency Antiphospholipid disorder Nicotine dependence Morbid obesity: BMI 32.5 PLAN: Obtain 2D echo to assess cardiac structure and function Begin metoprolol succinate 25 mg daily Resume Xarelto Smoking cessation encouraged Patient to undergo stress testing today If stress test is negative, patient may be discharged home today from a cardiac standpoint She is to follow-up postdischarge with Dr. Kate Nurse practitioner note has been reviewed by physician. Signing provider agrees with the documented findings, assessment, and plan of care documented by WIRE DRAWER as a scribe. 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 9 miscarriages History of Any Multi-Drug Resistant Organisms: MRSA Date of last positivie culture/infection: 2009 MDRO Source:: Polynoidal cyst Past Surgical History: Adenoidectomy, Back Surgery, Cholecystectomy, Tonsillectomy Additional Past Surgical History / Comment(s): pylonidial cyst 2002, 2 d&c related to miscarriges Past Anesthesia/Blood Transfusion Reactions: No Reported Reaction Past Psychological History: Anxiety, Depression Smoking Status: Current every day smoker Past Alcohol Use History: None Reported Past Drug Use History: None Reported, Marijuana - Past Family History Mother Family Medical History: AFIB, Congestive Heart Failure (CHF), Musculoskeletal Disorder Additional Family Medical History / Comment(s): cardiomyopathy, muscular dystrophy Father Family Medical History: Hyperlipidemia, Hypertension, Myocardial Infarction (SD) Brother(s) Family Medical History: Musculoskeletal Disorder Additional Family Medical History / Comment(s): at 17 from muscular dystrophy Medications and Allergies Home Medications Medication Instructions Recorded Confirmed Type Rivaroxaban [Xarelto] 20 mg PO DIRECTED@2100 12/12/23 12/12/23 History Sulfamethox-Tmp 800-160Mg [Bactrim 1 tab PO Q12HR 12/12/23 12/12/23 History DS 800-160 mg] Allergies Allergy/AdvReac Type Severity Reaction Status Date / Time codeine Allergy Rash/Hives Verified 05/10/17 11:18 morphine Allergy Rash/Hives Verified 05/10/17 11:18 amoxicillin trihydrate AdvReac Nausea & Verified 12/12/23 18:55 [From Augmentin] Vomiting cephalexin monohydrate AdvReac Nausea & Verified 12/12/23 18:55 [From Keflex] Vomiting potassium clavulanate AdvReac Nausea & Verified 12/12/23 18:55 [From Augmentin] Vomiting tramadol HCl [From Ultram] AdvReac Vomiting Verified 05/10/17 11:18 occuflux Allergy Swelling Uncoded 05/10/17 10:57 Physical Exam Vitals: Vital Signs Temp Pulse Resp BP Pulse Ox 12/13/23 07:44 78 18 152/99 98 12/13/23 05:51 73 16 141/104 98 12/13/23 04:18 73 16 134/99 98 12/13/23 02:00 95 16 133/93 97 12/13/23 00:00 73 16 120/79 95 12/12/23 23:15 66 16 111/69 97 12/12/23 22:16 97.9 F 104 H 16 119/97 97 12/12/23 22:00 108 H 16 113/93 97 12/12/23 20:22 127 H 18 148/98 95 12/12/23 19:51 129 H 18 145/110 95 12/12/23 18:52 97.5 F L 89 20 166/93 98 Intake and Output 12/12/23 12/13/23 12/13/23 22:59 06:59 14:59 Intake Total 19.083 Balance 19.083 Intake: Intake, IV Titration 19.083 Amount Diltiazem 125 mg In 19.083 Sodium Chloride 0.9% 100 ml @ 5 MG/HR 5 mls/hr IV .Q24H [facility] Rx#:[id number] Other: Weight 99.79 kg Results 12/12/23 19:15 12/12/23 19:15 Cardiac Enzymes 12/12/23 12/12/23 12/12/23 Range/Units 19:15 19:15 21:37 AST 46 H (14-36) U/L Troponin I <0.012 <0.012 (0.000-0.034) ng/mL 12/13/23 Range/Units 01:54 AST (14-36) U/L Troponin I <0.012 (0.000-0.034) ng/mL Coagulation 12/12/23 Range/Units 19:15 PT 10.1 (10.0-12.5) sec APTT 25.4 (22.0-30.0) sec CBC 12/12/23 Range/Units 19:15 WBC 9.5 (3.8-10.6) k/uL RBC 4.66 (3.80-5.40) m/uL Hgb 15.3 (11.4-16.0) gm/dL Hct 47.0 H (34.0-46.0) % Plt Count 291 (150-450) k/uL Comprehensive Metabolic Panel 12/12/23 Range/Units 19:15 Sodium 137 (137-145) mmol/L Potassium 3.7 (3.5-5.1) mmol/L Chloride 106 (98-107) mmol/L Carbon Dioxide 16 L (22-30) mmol/L BUN 16 (7-17) mg/dL Creatinine 0.82 (0.52-1.04) mg/dL Glucose 173 H (74-99) mg/dL Calcium 8.5 (8.4-10.2) mg/dL AST 46 H (14-36) U/L ALT 28 (4-34) U/L Alkaline Phosphatase 72 (38-126) U/L Total Protein 7.5 (6.3-8.2) g/dL Albumin 4.0 (3.5-5.0) g/dL Current Medications Generic Name Dose Route Start Last Admin Trade Name Freq PRN Reason Stop Dose Admin Enoxaparin Sodium 100 mg 12/13/23 09:00 Enoxaparin 100 Mg/Ml Syringe SQ Q12H [facility] Diltiazem HCl 125 mg/ Sodium 125 mls @ 5 mls/hr 12/12/23 19:15 12/12/23 23:15 Chloride IV 0 mg/hr .Q24H PABLO 0 mls/hr Infusion 5 MG/HR Nitroglycerin 0.4 mg 12/12/23 21:13 Nitroglycerin Sl Tabs 0.4 Mg Tab SUBLINGUAL Q5M PRN Chest Pain Intake and Output 12/12/23 12/13/23 12/13/23 22:59 06:59 14:59 Intake Total 19.083 Balance 19.083 Intake: Intake, IV Titration 19.083 Amount Diltiazem 125 mg In 19.083 Sodium Chloride 0.9% 100 ml @ 5 MG/HR 5 mls/hr IV .Q24H [facility] Rx#:[id number] Other: Weight 99.79 kg 12/12/23 19:15 12/12/23 19:15
[2023-12-13 12:29] VITALS: RESP 17
--- NOTE | 2023-12-13 12:35 | P.HPIM ---
History of Present Illness H&P Date: 12/13/23 History of present illness; patient is a 38-year-old lady with past medical history significant for DVT who presented to ER because of palpitation. Patient stated that she was all right 1 hour back when she started noticing that her heart was beating very fast. Patient also complaining of chest pressure during the initial episode, patient felt as if her heart will jump out of her chest. Does also complain of shortness of breath. Denied any nausea or vomiting. There is no complaint of orthopnea or PND. Denies any lightheadedness dizziness. Because of the symptoms, patient came to the ER Initial lab work done in the ER showed WBC 9.5, hemoglobin 15.3, platelet count 291, sodium 137, potassium 3.7, BUN 16, creatinine 0.82, glucose 173, AST 46, Urine drug screen was positive for opiates, benzodiazepines EKG done in the ER showed heart rate of 145, irregular in rhythm, no ST segment elevation or depression seen, no T-wave inversions seen. Chest x-ray done in the ER no acute cardiopulmonary process Patient admitted to internal medicine service REVIEW OF SYSTEMS: CONSTITUTIONAL: No fever, no malaise, no fatigue. HEENT: No recent visual problems or hearing problems. Denied any sore throat. CARDIOVASCULAR: As mentioned in HPI PULMONARY: As mentioned in HPI GASTROINTESTINAL: No diarrhea, no nausea, no vomiting, no abdominal pain. NEUROLOGICAL: No headaches, no weakness, no numbness. HEMATOLOGICAL: Denies any bleeding or petechiae. GENITOURINARY: Denies any burning micturition, frequency, or urgency. MUSCULOSKELETAL/RHEUMATOLOGICAL: Denies any joint pain, swelling, or any muscle pain. ENDOCRINE: Denies any polyuria or polydipsia. The rest of the 14-point review of systems is negative. PHYSICAL EXAMINATION: GENERAL: The patient is alert and oriented x3, not in any acute distress. Well developed, well nourished. HEENT: Pupils are round and equally reacting to light. EOMI. No scleral icterus. No conjunctival pallor. Normocephalic, atraumatic. No pharyngeal erythema. No thyromegaly. CARDIOVASCULAR: S1 and S2 present. No murmurs, rubs, or gallops. Irregular rate and rhythm PULMONARY: Chest is clear to auscultation, no wheezing or crackles. ABDOMEN: Soft, nontender, nondistended, normoactive bowel sounds. No palpable organomegaly. MUSCULOSKELETAL: No joint swelling or deformity. EXTREMITIES: No cyanosis, clubbing, or pedal edema. NEUROLOGICAL: Gross neurological examination did not reveal any focal deficits. SKIN: No rashes. Assessment and plan A-fib with RVR History of DVT Monitor vital signs Monitor CBC Monitor CMP Continue telemetry monitoring Trend troponin. Ordered 2D echo Ordered stress test Continue Lopressor Patient was given Lovenox in the ER, switched to Xarelto Cardiology consult Labs and medication were reviewed.. Continue same treatment. Continue with symptomatic treatment. Resume home medication. Monitor labs and vitals. DVT and GI prophylaxis. Further recommendations as per clinical course of the patient Dictation was produced using [employer] dictation software. please excuse any grammatical, word or spelling errors. 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 9 miscarriages History of Any Multi-Drug Resistant Organisms: MRSA Date of last positivie culture/infection: 2009 MDRO Source:: Polynoidal cyst Past Surgical History: Adenoidectomy, Back Surgery, Cholecystectomy, Tonsillectomy Additional Past Surgical History / Comment(s): pylonidial cyst 2002, 2 d&c related to miscarriges Past Anesthesia/Blood Transfusion Reactions: No Reported Reaction Past Psychological History: Anxiety, Depression Smoking Status: Current every day smoker Past Alcohol Use History: None Reported Past Drug Use History: None Reported, Marijuana - Past Family History Mother Family Medical History: AFIB, Congestive Heart Failure (CHF), Musculoskeletal Disorder Additional Family Medical History / Comment(s): cardiomyopathy, muscular dystrophy Father Family Medical History: Hyperlipidemia, Hypertension, Myocardial Infarction (MS) Brother(s) Family Medical History: Musculoskeletal Disorder Additional Family Medical History / Comment(s): at 17 from muscular dystrophy Medications and Allergies Home Medications Medication Instructions Recorded Confirmed Type Rivaroxaban [Xarelto] 20 mg PO DIRECTED@2100 12/12/23 12/12/23 History Sulfamethox-Tmp 800-160Mg [Bactrim 1 tab PO Q12HR 12/12/23 12/12/23 History DS 800-160 mg] Allergies Allergy/AdvReac Type Severity Reaction Status Date / Time codeine Allergy Rash/Hives Verified 05/10/17 11:18 morphine Allergy Rash/Hives Verified 05/10/17 11:18 amoxicillin trihydrate AdvReac Nausea & Verified 12/12/23 18:55 [From Augmentin] Vomiting cephalexin monohydrate AdvReac Nausea & Verified 12/12/23 18:55 [From Keflex] Vomiting potassium clavulanate AdvReac Nausea & Verified 12/12/23 18:55 [From Augmentin] Vomiting tramadol HCl [From Ultram] AdvReac Vomiting Verified 05/10/17 11:18 occuflux Allergy Swelling Uncoded 05/10/17 10:57 Physical Exam Vitals: Vital Signs Temp Pulse Resp BP Pulse Ox 12/13/23 07:44 78 18 152/99 98 12/13/23 05:51 73 16 141/104 98 12/13/23 04:18 73 16 134/99 98 12/13/23 02:00 95 16 133/93 97 12/13/23 00:00 73 16 120/79 95 12/12/23 23:15 66 16 111/69 97 12/12/23 22:16 97.9 F 104 H 16 119/97 97 12/12/23 22:00 108 H 16 113/93 97 12/12/23 20:22 127 H 18 148/98 95 12/12/23 19:51 129 H 18 145/110 95 12/12/23 18:52 97.5 F L 89 20 166/93 98 Intake and Output 12/12/23 12/13/23 12/13/23 22:59 06:59 14:59 Intake Total 19.083 Balance 19.083 Intake: Intake, IV Titration 19.083 Amount Diltiazem 125 mg In 19.083 Sodium Chloride 0.9% 100 ml @ 5 MG/HR 5 mls/hr IV .Q24H [facility] Rx#:[id number] Other: Weight 99.79 kg Results CBC & Chem 7: 12/12/23 19:15 12/12/23 19:15 Labs: Abnormal Lab Results - Last 24 Hours (Table) 12/12/23 12/12/23 12/12/23 Range/Units 19:15 19:15 21:52 Hct 47.0 H (34.0-46.0) % MCV 100.9 H (80.0-100.0) fL Carbon Dioxide 16 L (22-30) mmol/L Glucose 173 H (74-99) mg/dL AST 46 H (14-36) U/L Triglycerides (0.00-149.00) mg/dL HDL Cholesterol (40.00-60.00) mg/dL Urine Opiates Screen Detected H (NotDetected) Ur Oxycodone Screen Detected H (NotDetected) U Benzodiazepines Scrn Detected H (NotDetected) 12/13/23 Range/Units 01:54 Hct (34.0-46.0) % MCV (80.0-100.0) fL Carbon Dioxide (22-30) mmol/L Glucose (74-99) mg/dL AST (14-36) U/L Triglycerides 154.00 H (0.00-149.00) mg/dL HDL Cholesterol 37.40 L (40.00-60.00) mg/dL Urine Opiates Screen (NotDetected) Ur Oxycodone Screen (NotDetected) U Benzodiazepines Scrn (NotDetected)
--- NOTE | 2023-12-13 12:37 | CA ---
Exercise Stress Test Report Name: Sowmya Crum Exam Date: 12/13/2023 09:03 Exam Location: [place] Stress Ht (in): 69 Wt (lb): 220 BSA: 2.15 Ordering Phys: Roberta Bosch Referring Phys: DAGO Technologist: Tushar Martinez Age: 38 Gender: F : 1985 Procedure CPT: Indications: CP ICD-10 Codes: Patient History: CHEST PAIN, DIFFICULTY IN BREATHING, PALPITATIONS, HTN, FAMILY HX OF HEART DISEASE, CURRENT SMOKER, ASTHMA Medications: Meds past 24 hrs: Pretest Chest Pain: STRESS TEST Stephan Protocol Exercise Duration (min:sec): 09:[address] Depressions (mm): Angina Score: Loaiza Score: Resting HR (bpm): 88 Peak HR (bpm): 160 Resting BP (mmHg): 132 / 81 Peak BP (mmHg): 200 / 89 MPHR: 182 Target HR: 155 % MPHR: 88 METS: 10.3 Total Dose: Peak Dose: Atropine: Double Product: 90584 BP Response: Stress Termination: TARGET HR/MAX EXERTION Stress Symptoms: NO SYMPTOMS Stress Summary: ECG ANALYSIS Resting ECG: Normal sinus rhythm normal axis normal intervals Stress ECG: Patient exercised on Stephan protocol for 9 minutes achieving 10 METs 85% of predicted maximal heart rate without chest pain or diagnostic ST segment depression CONCLUSIONS Good exercise tolerance Negative stress test by EKG criteria Dr. Esequiel Santana MD (Electronically Signed) Final Date: 13 December 2023 12:36
[2023-12-13 13:55] VITALS: BP 138/80; PULSE 78; TEMP 98.1
--- NOTE | 2023-12-13 17:00 | CA ---
Transthoracic Echo Report Name: Sowmya Crum Age: 38 Gender: F : 1985 Exam Date: 12/13/2023 11:35 Exam Location: [place] Echo Ht (in): 69 Wt (lb): 220 Ordering Physician: Demar King MD Attending/Referring Phys: [employer] Set Production Designer Debo Barlow RDCS Procedure CPT: Indications: New Onset Atrial Fibrillation Cardiac Hx: Technical Quality: Good Contrast 1: Total Dose (mL): Contrast 2: Total Dose (mL): MEASUREMENTS (Male / Female) Normal Values 2D ECHO LV Diastolic Diameter PLAX 4.7 cm 4.2 - 5.9 / 3.9 - 5.3 cm LV Systolic Diameter PLAX 3.2 cm IVS Diastolic Thickness 1.2 cm 0.6 - 1.0 / 0.6 - 0.9 cm LVPW Diastolic Thickness 1.1 cm 0.6 - 1.0 / 0.6 - 0.9 cm LV Relative Wall Thickness 0.5 RV Internal Dim ED PLAX 3.6 cm LA Systolic Diameter LX 4.1 cm 3.0 - 4.0 / 2.7 - 3.8 cm LV Diastolic Volume MOD 4C 161.5 cm??? LV Systolic Volume MOD 4C 77.7 cm??? LV Ejection Fraction MOD 4C 51.9 % LV Cardiac Index MOD 4C 2362.1 cm???/min???m??? LV Diastolic Length 4C 8.7 cm LV Systolic Length 4C 6.7 cm LV Diastolic Volume MOD 2C 134.1 cm??? LV Systolic Volume MOD 2C 54.1 cm??? LV Ejection Fraction MOD 2C 59.7 % LV Cardiac Index MOD 2C 2254.1 cm???/min???m??? LV Diastolic Length 2C 8.8 cm LV Systolic Length 2C 7.0 cm LA Volume 75.9 cm??? 18 - 58 / 22 - 52 cm??? LA Volume Index 33.9 cm???/m??? 16 - 28 cm???/m??? M-MODE Aortic Root Diameter MM 3.5 cm MV E Point Septal Separation 0.7 cm AV Cusp Separation MM 2.8 cm DOPPLER AV Peak Velocity 104.2 cm/s AV Peak Gradient 4.3 mmHg MV Area PHT 2.8 cm??? Mitral E Point Velocity 64.4 cm/s Mitral A Point Velocity 53.1 cm/s Mitral E to A Ratio 1.2 MV Deceleration Time 268.0 ms FINDINGS Left Ventricle Left ventricular ejection fraction is estimated at 50-55 %. Left ventricular cavity size normal. Mildly increased septal wall thickness. Mildly increased posterior wall thickness. Right Ventricle Mild right ventricular dilatation. Unable to estimate the right ventricular systolic pressure. Right Atrium Normal right atrial size. Left Atrium Mildly increased left atrial diameter. Mildly increased left atrial volume. Mitral Valve Structurally normal mitral valve. No mitral stenosis, regurgitation or prolapse. Aortic Valve Trileaflet aortic valve. No aortic valve stenosis or regurgitation. Tricuspid Valve Structurally normal tricuspid valve. No tricuspid stenosis, regurgitation or prolapse. Pulmonic Valve Structurally normal pulmonic valve. Trace pulmonic regurgitation. Pericardium No pericardial effusion. Aorta Normal size aortic root and proximal ascending aorta. CONCLUSIONS Normal LV systolic function Previewed by: Dr. Esequiel Santaan MD (Electronically Signed) Final Date: 13 December 2023 16:59
[2023-12-13] MEDS ORDERED: METOPROLOL TARTRATE 25 MG TAB PO SCH (21:00)
[2023-12-13] MEDS ORDERED: RIVAROXABAN 20 MG TAB PO SCH (21:00)
[2023-12-14] MEDS ORDERED: METOPROLOL SUCCINATE (ER) 25 MG TAB.ER.24H PO SCH (09:00)
--- NOTE | 2023-12-14 09:15 | P.DS ---
Providers Date of admission: 12/12/23 21:13 Expected date of discharge: 12/13/23 Attending physician: Matteo Larsen MD Consults: 12/12/23 21:13 Consult Physician Routine Consulting Provider: Dick Lugo Consult Reason/Comments: New onset atrial fibrillation Do you want consulting provider notified?: Yes Primary care physician: Brian Zurita Hospital Course: Discharge diagnoses; A-fib with RVR History of DVT Hospital course; patient is a 38-year-old lady with past medical history significant for DVT who presented to ER because of palpitation. Patient stated that she was all right 1 hour back when she started noticing that her heart was beating very fast. Patient also complaining of chest pressure during the initial episode, patient felt as if her heart will jump out of her chest. Does also complain of shortness of breath. Denied any nausea or vomiting. There is no complaint of orthopnea or PND. Denies any lightheadedness dizziness. Because of the symptoms, patient came to the ER Initial lab work done in the ER showed WBC 9.5, hemoglobin 15.3, platelet count 291, sodium 137, potassium 3.7, BUN 16, creatinine 0.82, glucose 173, AST 46, Urine drug screen was positive for opiates, benzodiazepines EKG done in the ER showed heart rate of 145, irregular in rhythm, no ST segment elevation or depression seen, no T-wave inversions seen. Chest x-ray done in the ER no acute cardiopulmonary process Patient admitted to internal medicine service Patient was evaluated by cardiology, they recommend doing stress test which was negative for any ischemia. 2D echo was also done which showed normal LV function, no wall motion abnormalities. Cardiology recommend starting patient on Lopressor and Xarelto. PHYSICAL EXAMINATION: GENERAL: The patient is alert and oriented x3, not in any acute distress. Well developed, well nourished. HEENT: Pupils are round and equally reacting to light. EOMI. No scleral icterus. No conjunctival pallor. Normocephalic, atraumatic. No pharyngeal erythema. No thyromegaly. CARDIOVASCULAR: S1 and S2 present. No murmurs, rubs, or gallops. PULMONARY: Chest is clear to auscultation, no wheezing or crackles. ABDOMEN: Soft, nontender, nondistended, normoactive bowel sounds. No palpable organomegaly. MUSCULOSKELETAL: No joint swelling or deformity. EXTREMITIES: No cyanosis, clubbing, or pedal edema. NEUROLOGICAL: Gross neurological examination did not reveal any focal deficits. SKIN: No rashes. Dictation was produced using [employer] dictation software. please excuse any grammatical, word or spelling errors. Patient Condition at Discharge: Good Plan - Discharge Summary New Discharge Prescriptions: New Metoprolol Succinate (ER) [Toprol XL] 25 mg PO DAILY #30 tab Nitroglycerin Sl Tabs [Nitrostat] 0.4 mg SUBLINGUAL Q5M PRN #30 tab PRN Reason: Chest Pain Continue Sulfamethox-Tmp 800-160Mg [Bactrim DS 800-160 mg] 1 tab PO Q12HR Rivaroxaban [Xarelto] 20 mg PO HS Discharge Medication List Rivaroxaban [Xarelto] 20 mg PO HS 12/12/23 [History] Sulfamethox-Tmp 800-160Mg [Bactrim DS 800-160 mg] 1 tab PO Q12HR 12/12/23 [History] Metoprolol Succinate (ER) [Toprol XL] 25 mg PO DAILY #30 tab 12/13/23 [Rx] Nitroglycerin Sl Tabs [Nitrostat] 0.4 mg SUBLINGUAL Q5M PRN #30 tab 12/13/23 [Rx] Follow up Appointment(s)/Referral(s): Brian Zurita MD [Primary Care Provider] - 1-2 days Hugh Nunez DO [STAFF PHYSICIAN] - 1 Week Discharge Disposition: HOME SELF-CARE
== END 2023-12-13 13:25 | disposition home or self-care (01) | DRG 309 ==
LOC: EC 18:45 → 3SCARD 21:13
PROVIDERS: ADMIT Internal Medicine; ATTEND Internal Medicine
DX: I48.91 Unspecified atrial fibrillation (principal); D68.51 Activated protein C resistance; I82.501 Chronic embolism and thrombosis of unspecified deep veins of right lower extremity; K50.90 Crohn's disease, unspecified, without complications; G89.29 Other chronic pain; L30.9 Dermatitis, unspecified; K21.9 Gastro-esophageal reflux disease without esophagitis; M32.9 Systemic lupus erythematosus, unspecified; R06.83 Snoring; M54.9 Dorsalgia, unspecified; Z79.01 Long term (current) use of anticoagulants; E66.01 Morbid (severe) obesity due to excess calories; F17.210 Nicotine dependence, cigarettes, uncomplicated; F32.A Depression, unspecified; F41.9 Anxiety disorder, unspecified; J45.909 Unspecified asthma, uncomplicated; Z68.32 Body mass index [BMI] 32.0-32.9, adult; Z82.49 Family history of ischemic heart disease and other diseases of the circulatory system; Z88.1 Allergy status to other antibiotic agents; Z88.5 Allergy status to narcotic agent; Z88.0 Allergy status to penicillin; Z88.8 Allergy status to other drugs, medicaments and biological substances; Z86.14 Personal history of Methicillin resistant Staphylococcus aureus infection
CPT/HCPCS: 36415; 71045; 80053; 80061; 80306; 81003; 83735; 84443; 84484; 85025; 85379; 85610; 85730; 93005; 93017; 93306; 96365; 96366; 96372; 96375; 99291